=== PATIENT | female | born 1970 | race Caucasian/White ===

== ENCOUNTER 2019-09-02 18:28 | Emergency (ER) | payer BC ==
--- OUTSIDE RECORDS SUMMARY | 2019-09-02 18:30 | XMS REPORT | Continuity of Care Document ---
:1970 Author Organization [facility] t Address [address] [place] [address] [address]. Mer[address] [place] [address] Care Team Providers Name Role Phone Unavailable Unavailable Unavailable Problems This patient has no known problems. Allergies, Adverse Reactions, Alerts This patient has no known allergies or adverse reactions. Medications This patient has no known medications. Procedures This patient has no known procedures. Results This patient has no known results.
[2019-09-02] MEDS ORDERED: ONDANSETRON 4 MG/2 ML VIAL ONE ×2 (19:20→20:44)
[2019-09-02] MEDS ORDERED: FENTANYL CITR 100 MCG/2 ML ONE ×2 (19:20→21:54)
[2019-09-02 19:24] LABS: Absolute Lymphocytes (CBC) 1.4 K/uL (0.7-4.9); Basophils % 0.3 % (0-1.3); Hematocrit 40.2 % (36.0-45.0); Lymphocytes % 11.3 % (15.3-44.8); MPV 8.4 fL (7.6-11.3); RBC Red Blood Cell Count 4.33 M/uL (3.86-4.86)
[2019-09-02 19:41] LABS: Albumin 3.8 g/dL (3.4-5.0); Bilirubin Direct 0.1 mg/dL (0-0.2); Bilirubin Total 0.3 mg/dL (0.2-1.0); Protein, Total 7.4 g/dL (6.4-8.2)
--- NOTE | 2019-09-02 20:10 | RAD REPORT ---
EXAM DESCRIPTION: CTAbdomen Pelvis W Contrast - 09/02/2019 7:57 pm CLINICAL HISTORY: Abdominal pain. ABD PAIN COMPARISON: Abdomen Pelvis W Contrast dated 07/22/2016 TECHNIQUE: Biphasic CT imaging of the abdomen and pelvis was performed with 100 ml non-ionic IV cont rast. All CT scans are performed using dose optimization technique as appropriate and may include automated exposure control or mA/KV adjustment according to patient size. FINDINGS: The lung bases are clear.Cholecystectomy clips. The liver, spleen, pancreas, adrenal glands and left kidney are within normal limits. 9 mm stone (760 HU) is noted at the right UPJ resulting in moderate right hydronephrosis and perinephric fat strandi ng. No bowel obstruction, free air, free fluid or abscess. Appendectomy. No evidence of significant lym phadenopathy. No suspicious bony findings. IMPRESSION: 9 mm calculus is present at the right UVJ resulting in moderate hydronephrosis.
[2019-09-02] MEDS ORDERED: NS KCL 20MEQ 1,000 ML IV ONE (20:44)
[2019-09-02] MEDS ORDERED: KETOROLAC 30 MG/ML INJ ONE (20:45)
[2019-09-02] MEDS ORDERED: METOCLOPRAMIDE 10 MG/2mL INJ ONE (21:53)
[2019-09-02] MEDS ORDERED: DIPHENHYDRAMINE 50 MG/ML VIAL ONE (21:53)
--- NOTE | 2019-09-02 22:15 | EDPHYS ---
Physician Documentation [facility] Name: Miriam Gregorio Age: 49 yrs Sex: Female : 1970 Arrival Date: 09/02/2019 Time: 18:33 Bed 8 Private MD: ED Physician Vadim Rose HPI: 09/01 20:03 This 49 yrs old Female presents to ER via Ambulatory with complaints of jr8 Abdominal Pain, Nausea. 20:03 The patient presents with abdominal pain in the upper abdomen. Onset: The jr8 symptoms/episode began/occurred acutely, today. The symptoms do not radiate. Associated signs and symptoms: Pertinent positives: nausea and vomiting. The symptoms are described as stabbing. Modifying factors: The symptoms are alleviated by nothing, the symptoms are aggravated by nothing. Severity of pain: At its worst the pain was moderate in the emergency department the pain is unchanged. The patient has not experienced similar symptoms in the past. The patient has not recently seen a physician. 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 - Social history:: Smoking status: Patient denies any tobacco usage or history of. Patient/guardian denies using alcohol, street drugs, tobacco products. ROS: 20:03 Eyes: Negative for injury, pain, redness, and discharge, ENT: Negative for injury, jr8 pain, and discharge, Neck: Negative for injury, pain, and swelling, Respiratory: Negative for shortness of breath, cough, wheezing, and pleuritic chest pain, Back: Negative for injury and pain, MS/Extremity: Negative for injury and deformity, Skin: Negative for injury, rash, and discoloration, Neuro: Negative for headache, weakness, numbness, tingling, and seizure. 20:03 Cardiovascular: Negative for chest pain, palpitations, and edema. 20:03 Abdomen/GI: Positive for abdominal pain, nausea and vomiting, Negative for diarrhea, constipation, abdominal cramps, abdominal distension, anorexia, dysphagia, hematemesis, black/tarry stool, rectal pain, rectal bleeding, bowel incontinence, flatulence. Exam: 20:03 Eyes: Pupils equal round and reactive to light, extra-ocular motions intact. Lids and jr8 lashes normal. Conjunctiva and sclera are non-icteric and not injected. Cornea within normal limits. Periorbital areas with no swelling, redness, or edema. ENT: Nares patent. No nasal discharge, no septal abnormalities noted. Tympanic membranes are normal and external auditory canals are clear. Oropharynx with no redness, swelling, or masses, exudates, or evidence of obstruction, uvula midline. Mucous membranes moist. Neck: Trachea midline, no thyromegaly or masses palpated, and no cervical lymphadenopathy. Supple, full range of motion without nuchal rigidity, or vertebral point tenderness. No Meningismus. Cardiovascular: Regular rate and rhythm with a normal S1 and S2. No gallops, murmurs, or rubs. Normal PMI, no JVD. No pulse deficits. Respiratory: Lungs have equal breath sounds bilaterally, clear to auscultation and percussion. No rales, rhonchi or wheezes noted. No increased work of breathing, no retractions or nasal flaring. Back: No spinal tenderness. No costovertebral tenderness. Full range of motion. Skin: Warm, dry with normal turgor. Normal color with no rashes, no lesions, and no evidence of cellulitis. MS/ Extremity: Pulses equal, no cyanosis. Neurovascular intact. Full, normal range of motion. Neuro: Awake and alert, GCS 15, oriented to person, place, time, and situation. Cranial nerves II-XII grossly intact. Motor strength 5/5 in all extremities. Sensory grossly intact. Cerebellar exam normal. Normal gait. 20:03 Abdomen/GI: Inspection: abdomen appears normal, Bowel sounds: active, all quadrants, Palpation: soft, in all quadrants, moderate abdominal tenderness, in the epigastric area and mid upper abdomen , mass, is not appreciated, rebound tenderness, is not appreciated, voluntary guarding, is not appreciated, involuntary guarding, is not appreciated, no appreciated organomegaly, Indicators: McBurney's point is not tender, Rose's sign is negative, Rovsing's sign is negative, Liver: tenderness, is not appreciated. Vital Signs: 18:39 BP 129 / 100; Pulse 100; Resp 24; Temp 98.4; Pulse Ox 98% ; Pain 10/10; ll1 19:30 BP 133 / 81; Pulse 99; Resp 18; Pulse Ox 100% on R/A; wh 20:41 Weight 74.84 kg; Height 5 ft. 2 in. (157.48 cm); wh 21:00 BP 138 / 76; Pulse 109; Resp 18; Pulse Ox 100% on R/A; wh 22:00 BP 130 / 76; Pulse 107; Resp 18; Pulse Ox 100% on R/A; wh 20:41 Body Mass Index 30.18 (74.84 kg, 157.48 cm) MDM: 18:49 Patient medically screened. jr8 22:12 Data reviewed: vital signs, nurses notes, lab test result(s), radiologic studies, CT jr8 scan. Data interpreted: Pulse oximetry: on room air is 100 %. Interpretation: normal. Counseling: I had a detailed discussion with the patient and/or guardian regarding: the historical points, exam findings, and any diagnostic results supporting the discharge/admit diagnosis, lab results, radiology results, the need for outpatient follow up, a urologist, to return to the emergency department if symptoms worsen or persist or if there are any questions or concerns that arise at home. Response to treatment: the patient's symptoms have markedly improved after treatment. ED course: Patient feeling much better. Stable at this time. Able to tolerate fluids. Stone is at the UVJ. Explained to her that this still could cause problems if it does not pass in next day or two. To watch for fevers. If worse to come back for transfer if urology is not on. 09/01 18:49 Order name: Basic Metabolic Panel 8 09/01 18:49 Order name: CBC with Diff 8 09/01 18:49 Order name: Hepatic Function 8 09/01 18:49 Order name: Lipase; Complete Time: 20:05 [facility] 09/01 18:50 Order name: Basic Metabolic Panel; Complete Time: 20:05 [facility] 09/01 18:50 Order name: CBC with Automated Diff; Complete Time: 20:05 [facility] 09/01 18:50 Order name: Liver (Hepatic) Function; Complete Time: 20:05 [facility] 09/01 18:58 Order name: CT Abd/Pelvis - IV Contrast Only; Complete Time: 20:12 [facility] 09/01 18:49 Order name: IV Saline Lock; Complete Time: :09/01 18:49 Order name: Labs collected and sent; Complete Time: Administered Medications: 19:19 Drug: fentaNYL (PF) 75 mcg {Note: RASS 0.} Route: IVP; Site: right antecubital; 21:53 Follow up: Response: No adverse reaction; Pain is decreased; RASS: Alert and Calm (0) 19:21 Drug: Zofran (Ondansetron) 4 mg Route: IVP; Site: right antecubital; 21:53 Follow up: Response: No adverse reaction; Nausea is decreased 20:36 Drug: NS 0.9% with KCl 20 mEq/L 1000 ml Route: IV; Rate: 500 ml/hr; Site: right wh antecubital; 21:54 Follow up: Response: No adverse reaction; IV Status: Completed infusion wh 20:38 Drug: TORadol - Ketorolac 15 mg Route: IVP; Site: right antecubital; 21:54 Follow up: Response: No adverse reaction; Pain is decreased wh 20:40 Drug: Zofran (Ondansetron) 4 mg Route: IVP; Site: right antecubital; wh 21:54 Follow up: Response: No adverse reaction; Nausea is decreased wh 20:48 Drug: fentaNYL (PF) 50 mcg {Note: RASS 0.} Route: IVP; Site: right antecubital; 22:23 Follow up: Response: No adverse reaction; Pain is decreased; RASS: Alert and Calm (0) 20:50 Drug: Benadryl 25 mg Route: IVP; Site: right antecubital; 22:23 Follow up: Response: No adverse reaction 21:52 Drug: Reglan 10 mg Route: IVP; Site: right antecubital; 22:23 Follow up: Response: No adverse reaction; Nausea is decreased 22:14 Drug: Flomax 0.4 mg Route: PO; 22:23 Follow up: Response: No adverse reaction Disposition: 09/02 08:18 Co-signature as Attending Physician, Vadim Rose MD I agree with the assessment and kdr plan of care. Disposition: 09/02/19 22:14 Discharged to Home. Impression: Hydronephrosis with renal and ureteral calculous obstruction. - Condition is Stable. - Discharge Instructions: Kidney Stones, Hydronephrosis. - Prescriptions for tramadol 200 mg Oral tablet extended release 24 hr - take 1 tablet by ORAL route once daily; 12 tablet. Cipro 500 mg Oral Tablet - take 1 tablet by ORAL route every 12 hours for 10 days; 20 tablet. Flomax 0.4 mg Oral Capsule, Sust. Release 24 hr - take 1 capsule by ORAL route once daily 1/2 hour following the same meal each day; 30 capsule. Zofran 4 mg Oral Tablet - take 1 tablet by ORAL route every 12 hours As needed; 20 tablet. - Medication Reconciliation Form, Thank You Letter, Antibiotic Education, Prescription Opioid Use form. - Follow up: Quang Hernandes MD; When: 2 - 3 days; Reason: Recheck today's complaints, Continuance of care, Re-evaluation by your physician. - Problem is new. - Symptoms have improved. Signatures: Dispatcher [employer] EDMS Vadim Rose MD MD kdr Roszak, Josh, PA PA jr8 Princess Eagle, RN RN Bonnie Nicole Maxim, Tiana mw2 Jacquie Davidson RN RN ll1 Corrections: (The following items were deleted from the chart) 09/01 22:32 22:14 09/02/2019 22:14 Discharged to Home. Impression: Hydronephrosis with renal and mw2 ureteral calculous obstruction. Condition is Stable. Forms are Medication Reconciliation Form, Thank You Letter, Antibiotic Education, Prescription Opioid Use. Follow up: Quang Hernandes; When: 2 - 3 days; Reason: Recheck today's complaints, Continuance of care, Re-evaluation by your physician. Problem is new. Symptoms have improved. jr8
--- NOTE | 2019-09-02 22:15 | ER ---
Nurse's Notes [facility] Name: Miriam Gregorio Age: 49 yrs Sex: Female : 1970 Arrival Date: 09/02/2019 Time: 18:33 Bed 8 Private MD: Diagnosis: Hydronephrosis with renal and ureteral calculous obstruction Presentation: 09/01 18:39 Chief complaint: Patient states: Right sided abd pain with N/V for 10 am. Coronavirus ll1 screen: Patient denies a cough. Patient denies shortness of breath or difficulty breathing. Patient denies measured and/or subjective temperature greater than 100.4F prior to today's visit. Patient denies travel on a cruise ship or to a country the [facility] currently lists as an affected area. Patient denies contact with known and/or suspected case of COVID-19. Proceed with normal triage. Ebola Screen: Patient denies travel to an Ebola-affected area in the 21 days before illness onset. Initial Sepsis Screen: Does the patient meet any 2 criteria? HR > 90 bpm. No. Patient's initial sepsis screen is negative. Risk Assessment: Do you want to hurt yourself or someone else? Patient reports no desire to harm self or others. Onset of symptoms was September 02, 2019. 18:39 Method Of Arrival: Ambulatory ll1 18:39 Acuity: TU 3 ll1 19:30 Initial Sepsis Screen: Does the patient have a suspected source of infection? No. Patient's initial sepsis screen is negative. 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 - Social history:: Smoking status: Patient denies any tobacco usage or history of. Patient/guardian denies using alcohol, street drugs, tobacco products. Screenin:59 Abuse screen: Denies threats or abuse. Denies injuries from another. Nutritional jr10 screening: No deficits noted. Tuberculosis screening: No symptoms or risk factors identified. Fall Risk IV access (20 points). Assessment: 18:57 Pain: Complains of pain in epigastric area and umbilical area Pain does not radiate. jr10 Pain at worst was 10 out of 10 on a pain scale. Quality of pain is described as aching, gnawing, Pain began gradually, reports pain that started at 1000 this morning and has gradually gotten worse "I think I have pancreatitis" Is continuous, Aggravated by drinking, Noted to be grimacing, pt noted to be tearful at present Also complains of nausea. Neuro: No deficits noted. Cardiovascular: No deficits noted. Respiratory: No deficits noted. GI: Abdomen is non-distended, Bowel sounds present X 4 quads. Abdomen is tender to palpation in epigastric area and umbilical area Guarding noted. : No deficits noted. Musculoskeletal: No deficits noted. 18:57 General: Appears distressed, uncomfortable, Behavior is restless. jr10 19:29 General: Appears in no apparent distress. Behavior is calm, cooperative, appropriate wh for age. Pain: Complains of pain in epigastric area Pain does not radiate. Pain currently is 5 out of 10 on a pain scale. Neuro: Level of Consciousness is awake, alert, obeys commands, Oriented to person, place, time, situation, Appropriate for age. Cardiovascular: Heart tones S1 S2. Respiratory: Airway is patent Respiratory effort is even, unlabored, Respiratory pattern is regular, symmetrical, Breath sounds are clear bilaterally. GI: Abdomen is flat, non-distended, Bowel sounds present X 4 quads. Abd is soft Abdomen is tender to palpation in epigastric area. : No signs and/or symptoms were reported regarding the genitourinary system. EENT: No signs and/or symptoms were reported regarding the EENT system. Derm: Skin is intact, is healthy with good turgor, Skin is pink, warm \\T\\ dry. normal. Musculoskeletal: Circulation, motion, and sensation intact. 21:00 Reassessment: Patient appears in no apparent distress at this time. No changes from previously documented assessment. Patient and/or family updated on plan of care and expected duration. Pain level reassessed. Patient is alert, oriented x 3, equal unlabored respirations, skin warm/dry/pink. 22:15 Reassessment: Patient appears in no apparent distress at this time. No changes from previously documented assessment. Patient and/or family updated on plan of care and expected duration. Pain level reassessed. Patient is alert, oriented x 3, equal unlabored respirations, skin warm/dry/pink. Patient states feeling better. Patient states symptoms have improved. Vital Signs: 18:39 BP 129 / 100; Pulse 100; Resp 24; Temp 98.4; Pulse Ox 98% ; Pain 10/10; ll1 19:30 BP 133 / 81; Pulse 99; Resp 18; Pulse Ox 100% on R/A; wh 20:41 Weight 74.84 kg; Height 5 ft. 2 in. (157.48 cm); wh 21:00 BP 138 / 76; Pulse 109; Resp 18; Pulse Ox 100% on R/A; wh 22:00 BP 130 / 76; Pulse 107; Resp 18; Pulse Ox 100% on R/A; wh 20:41 Body Mass Index 30.18 (74.84 kg, 157.48 cm) ED Course: 18:33 Patient arrived in ED. mr 18:40 Triage completed. ll1 18:40 Arm band placed on Patient placed in an exam room, on a stretcher. ll1 18:46 Tana Fish is Primary Nurse. jr10 18:49 Hunter Samuel PA is PHCP. jr8 18:49 Vadim Rose MD is Attending Physician. jr8 19:00 Inserted saline lock: 20 gauge in right antecubital area, using aseptic technique. jr10 Blood collected. 19:01 Basic Metabolic Panel Sent. jr10 19:01 CBC with Diff Sent. jr10 19:02 Hepatic Function Sent. jr10 19:30 Patient has correct armband on for positive identification. Placed in gown. Bed in low wh position. Call light in reach. Side rails up X 1. Pulse ox on. NIBP on. 19:57 CT Abd/Pelvis - IV Contrast Only In Process Unspecified. EDMS 22:14 Quang Hernandes MD is Referral Physician. jr8 22:21 No provider procedures requiring assistance completed. IV discontinued, intact, wh bleeding controlled, No redness/swelling at site. Administered Medications: 19:19 Drug: fentaNYL (PF) 75 mcg {Note: RASS 0.} Route: IVP; Site: right antecubital; 21:53 Follow up: Response: No adverse reaction; Pain is decreased; RASS: Alert and Calm (0) 19:21 Drug: Zofran (Ondansetron) 4 mg Route: IVP; Site: right antecubital; 21:53 Follow up: Response: No adverse reaction; Nausea is decreased wh 20:36 Drug: NS 0.9% with KCl 20 mEq/L 1000 ml Route: IV; Rate: 500 ml/hr; Site: right wh antecubital; 21:54 Follow up: Response: No adverse reaction; IV Status: Completed infusion wh 20:38 Drug: TORadol - Ketorolac 15 mg Route: IVP; Site: right antecubital; 21:54 Follow up: Response: No adverse reaction; Pain is decreased wh 20:40 Drug: Zofran (Ondansetron) 4 mg Route: IVP; Site: right antecubital; 21:54 Follow up: Response: No adverse reaction; Nausea is decreased 20:48 Drug: fentaNYL (PF) 50 mcg {Note: RASS 0.} Route: IVP; Site: right antecubital; 22:23 Follow up: Response: No adverse reaction; Pain is decreased; RASS: Alert and Calm (0) wh 20:50 Drug: Benadryl 25 mg Route: IVP; Site: right antecubital; 22:23 Follow up: Response: No adverse reaction 21:52 Drug: Reglan 10 mg Route: IVP; Site: right antecubital; 22:23 Follow up: Response: No adverse reaction; Nausea is decreased 22:14 Drug: Flomax 0.4 mg Route: PO; 22:23 Follow up: Response: No adverse reaction Outcome: 22:14 Discharge ordered by MD. huynh 22:21 Discharged to home ambulatory. 22:21 Condition: stable 22:21 Discharge instructions given to patient, Instructed on discharge instructions, follow up and referral plans. no drinking with medication, no driving heavy equipment, medication usage, urine strainer, POC Demonstrated understanding of instructions, follow-up care, medications, POC Prescriptions given X 3. 22:32 Patient left the ED. mw2 Signatures: Dispatcher [employer] EDVT Payal Fish mr SamuelHunter PA PA jr8 Bonnie Duvall Tiana Pan mw2 Jacquie Davidson RN RN 1 Tana Fish jr10
[2019-09-02] MEDS ORDERED: TAMSULOSIN 0.4 MG SR CAP ONE (22:20)
[2019-09-02 22:44] VITALS: TEMP 98.4
[2019-09-02 22:46] VITALS: O2SAT 100
[2019-09-02 22:48] VITALS: BP 130/76
== END 2019-09-02 22:32 | disposition home or self-care (01) ==
LOC: ER 18:28
DX: N13.2 Hydronephrosis with renal and ureteral calculous obstruction (principal); Z88.5 Allergy status to narcotic agent; Z91.048 Other nonmedicinal substance allergy status
CPT/HCPCS: 96361; 85025; 80048; 36415; 80076; 83690; 74177; 96375; 96374; 99284; Q9967; J2765; J1200; J3010 ×2; J2405 ×2

== ENCOUNTER 2019-09-05 09:14 | Emergency (ER) | payer BC ==
[2019-09-05] MEDS ORDERED: ONDANSETRON 4 MG/2 ML VIAL ONE (10:05)
[2019-09-05] MEDS ORDERED: NA CHLORIDE 0.9% 500 ML ONE ×2 (10:05→12:25)
[2019-09-05] MEDS ORDERED: ACETAMINOPHEN 325 MG TABLET ONE (10:05)
--- NOTE | 2019-09-05 10:34 | RAD REPORT ---
EXAM DESCRIPTION: CT - Stone Protocol - 09/05/2019 9:55 am CLINICAL HISTORY: Abdominal pain. COMPARISON: September 02, 2019 TECHNIQUE: Computed axial tomography of the abdomen pelvis was obtained without oral or IV contrast. Lack of IV and oral contrast limits evaluation of solid organs, bowel, and vessels. Coronal reformat saúl images were obtained and reviewed. All CT scans are performed using dose optimization technique as appropriate and may include automated exposure control or mA/KV adjustment according to patient size. FINDINGS: Moderate right hydronephrosis. Contrast from the prior exam is present within the right re nal pelvis and right calyces. Heterogeneous density to the parenchyma of the right kidney. [address] right UPJ calculus unchanged in position since the prior exam. Right perirenal stranding Left renal calculus is not present. The liver, spleen, pancreas and adrenals appear grossly normal There is no evidence of diverticulitis. IMPRESSION: 8 millimeter right UPJ calculus results in moderate right hydronephrosis. Heterogeneous density of the right kidney may indicate a superimposed pyelonephritis
[2019-09-05] MEDS ORDERED: MEPERIDINE HCL 50 MG/ML ONE ×2 (10:37→14:21)
[2019-09-05 10:39] LABS: Absolute Lymphocytes (CBC) 0.6 K/uL (0.7-4.9); Basophils % 0.3 % (0-1.3); Hematocrit 35.5 % (36.0-45.0); MPV 9.4 fL (7.6-11.3)
--- NOTE | 2019-09-05 10:40 | RAD REPORT ---
EXAM DESCRIPTION: Alexsandra Single View09/05/2019 9:59 am CLINICAL HISTORY: Fever/abdominal pain COMPARISON: 2009 FINDINGS: The lungs appear clear of acute infiltrate. The heart is mildly enlarged IMPRESSION: No acute abnormalities displayed
[2019-09-05 10:53] LABS: Albumin 2.8 g/dL (3.4-5.0); Bilirubin Direct 0.2 mg/dL (0-0.2); Bilirubin Total 0.4 mg/dL (0.2-1.0)
[2019-09-05 10:58] LABS: Potassium 2.7 mmol/L (3.5-5.1)
[2019-09-05 12:07] LABS: Urine Bacteria <20 /HPF (<20); Urine Culture Reflex Order NOT NEEDED; Urine Urothelial Cells <5 /HPF (NONE SEEN)
[2019-09-05 12:09] LABS: Urine Blood 2+ (NEG); Urine Glucose NEGATIVE (NEG); Urine Protein 2+ (NEG); Urine pH 6.5 (5.0-7.0)
--- NOTE | 2019-09-05 12:12 | EDPHYS ---
Physician Documentation [facility] Name: Miriam Gregorio Age: 49 yrs Sex: Female : 1970 Arrival Date: 09/05/2019 Time: 09:18 Bed 5 Private MD: ED Physician Krunal Millan HPI: 09/04 10:50 This 49 yrs old Female presents to ER via Wheelchair with complaints of rn Fever, Diarrhea, Possible Kidney Stone. 10:50 The patient reports fever, that was measured at 103 degrees Fahrenheit. Onset: The rn symptoms/episode began/occurred today. Associated signs and symptoms: Pertinent positives: chills, nausea, vomiting. Severity of symptoms: At their worst the symptoms were moderate in the emergency department the symptoms are unchanged. The patient has experienced a previous episode. The patient has been recently seen at the [facility] Emergency Department. Reports just seen here a few days ago, feels like stone has not passes, now with fever/vomiting/diarrhea. . 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 - Social history:: Smoking status: Patient denies any tobacco usage or history of. - Family history:: not pertinent. - Hospitalizations: : No recent hospitalization is reported. ROS: 10:50 Constitutional: + fever and chills Eyes: Negative for injury, pain, redness, and rn perioperative, Cardiovascular: Negative for chest pain, palpitations, and edema, Respiratory: Negative for shortness of breath, cough, wheezing, and pleuritic chest pain, Abdomen/GI: + abd pain/nausea/vomiting MS/Extremity: Negative for injury and deformity, Skin: Negative for injury, rash, and discoloration, Neuro: Negative for headache, weakness, numbness, tingling, and seizure. Exam: 10:50 Constitutional: This is a well developed, well nourished patient who is awake, alert, rn appears uncomfortable Head/Face: Normocephalic, atraumatic. ENT: dry MM Cardiovascular: tachycardic, regular Respiratory: + tachypnea, no retractions Abdomen/GI: soft, + bilateral lower abd tenderness, no rebound Skin: Warm, dry MS/ Extremity: Pulses equal, no cyanosis. Neuro: Awake and alert, GCS 15 Vital Signs: 09:23 BP 106 / 56; Pulse 129; Resp 18; Temp 100.5(O); Pulse Ox 95% on R/A; Weight 74.84 kg; em Height 5 ft. 2 in. (157.48 cm); Pain 9/10; 10:34 BP 93 / 58; Pulse 105; Resp 28; Pulse Ox 89% ; sv 11:42 BP 92 / 58; Pulse 101; Resp 17; Temp 98.7; Pulse Ox 97% on 2 lpm NC; mh5 12:15 BP 104 / 67; Pulse 96; Resp 18; Pulse Ox 97% on 2 lpm NC; sv 13:00 BP 102 / 60; Pulse 96; Resp 19; Pulse Ox 96% on 2 lpm NC; sv 13:45 BP 110 / 59; Pulse 93; Resp 17; Pulse Ox 95% on 2 lpm NC; sv 09:23 Body Mass Index 30.18 (74.84 kg, 157.48 cm) em 10:34 Pt placed on O2 \T\ 2L per NC. O2 sat up to 96%. Informed Dr Millan. sv MDM: 09:29 Patient medically screened. rn 12:10 Differential diagnosis: viral Infection, bacterial infection, UTI. Data reviewed: vital rn signs, nurses notes, lab test result(s), radiologic studies, CT scan, and as a result, I will admit patient. Counseling: I had a detailed discussion with the patient and/or guardian regarding: the historical points, exam findings, and any diagnostic results supporting the discharge/admit diagnosis, lab results, radiology results, the need for further work-up and treatment in the hospital, the need to transfer to another facility, [facility] does not immediately have the required specialist. ED course: Pt with no change in proximal kidney stone, 8mm, + superimposed pyelonephritis, improved slightly, no urology here, will transfer, abx given, pt feels better, ambulatory to bathroom without assistance. . 09/04 09:36 Order name: Basic Metabolic Panel; Complete Time: 11:29 rn 09/04 09:36 Order name: CBC with Diff rn 09/04 09:36 Order name: Hepatic Function; Complete Time: 11:29 rn 09/04 09:36 Order name: Lipase; Complete Time: 11:29 rn 09/04 09:36 Order name: Urine Culture rn 09/04 09:36 Order name: Urine Microscopic Only; Complete Time: 12:09 rn 09/04 09:36 Order name: CT Stone Protocol; Complete Time: 10:41 rn 09/04 09:36 Order name: Blood Culture Adult (2) rn 09/04 09:36 Order name: XRAY Chest (1 view); Complete Time: 10:45 rn 09/04 11:43 Order name: Urine Dipstick--Ancillary (enter results); Complete Time: 12:09 bd 09/04 11:43 Order name: Urine --Ancillary (enter results); Complete Time: 12:09 bd 09/04 13:27 Order name: CBC Smear Scan EDMS 09/04 09:36 Order name: IV Saline Lock; Complete Time: 10:25 rn 09/04 09:36 Order name: Labs collected and sent; Complete Time: 10:25 rn 09/04 09:36 Order name: Urine Dipstick-Ancillary (obtain specimen); Complete Time: 11:41 rn Administered Medications: 10:24 Drug: NS 0.9% 500 ml Route: IV; Rate: bolus; Site: left antecubital; sv 10:45 Follow up: Response: No adverse reaction; IV Status: Completed infusion; IV Intake: sv 500ml 10:31 Drug: Zofran (Ondansetron) 4 mg Route: IVP; Site: left antecubital; sv 11:00 Follow up: Response: No adverse reaction; Nausea is decreased sv 10:33 Drug: Demerol 25 mg {Note: rass1.} Route: IVP; Site: left antecubital; sv 11:00 Follow up: Response: No adverse reaction; Pain is decreased; RASS: Alert and Calm (0) sv 12:33 Drug: Rocephin - (cefTRIAXone) 1 grams Route: IVPB; Infused Over: 30 mins; Site: left sv antecubital; 12:35 Follow up: Response: No adverse reaction; IV Status: Completed infusion; IV Intake: 10mlsv 12:33 Drug: NS 0.9% 500 ml Route: IV; Rate: bolus; Site: left antecubital; sv 13:00 Follow up: Response: No adverse reaction; IV Status: Completed infusion; IV Intake: sv 500ml 12:35 Drug: Tylenol 650 mg Route: PO; sv 13:00 Follow up: Response: No adverse reaction sv 14:19 Drug: Demerol 25 mg {Note: rass1.} Route: IVP; Site: left antecubital; sv 14:21 Follow up: Response: Medication administered at discharge. sv Disposition: 09/05/19 12:11 Transfer ordered to [facility]. Diagnosis are Hydronephrosis with renal and ureteral calculous obstruction, Pyelonephritis. - Reason for transfer: Higher level of care. - Accepting physician is . - Condition is Stable. - Problem is an ongoing problem. - Symptoms have improved. Signatures: Dispatcher [employer] Dawna Gaming RN RN Daniel Price RN RN Krunal Millan MD MD media intern: (The following items were deleted from the chart) 14:22 12:11 09/05/2019 12:11 Transfer ordered to [facility]. sv Diagnosis is Hydronephrosis with renal and ureteral calculous obstruction; Pyelonephritis. Reason for transfer: Higher level of care. Accepting physician is . Condition is Stable. Problem is an ongoing problem. Symptoms have improved. rn
--- NOTE | 2019-09-05 12:12 | ER ---
Nurse's Notes [facility] Name: Miriam Gregorio Age: 49 yrs Sex: Female : 1970 Arrival Date: 09/05/2019 Time: 09:18 Bed 5 Private MD: Diagnosis: Hydronephrosis with renal and ureteral calculous obstruction;Pyelonephritis Presentation: 09/04 09:23 Chief complaint: Patient states: was here on Thursday and diagnosed with kidney stone, em pain is about the same but now developed fever 103.5 this morning, also reports N/V/D. Coronavirus screen: Patient denies a cough. Patient denies shortness of breath or difficulty breathing. Patient denies measured and/or subjective temperature greater than 100.4F prior to today's visit. Patient denies travel on a cruise ship or to a country the [facility] currently lists as an affected area. Patient denies contact with known and/or suspected case of COVID-19. Ebola Screen: Patient negative for fever greater than or equal to 101.5 degrees Fahrenheit, and additional compatible Ebola Virus Disease symptoms Patient denies exposure to infectious person. Patient denies travel to an Ebola-affected area in the 21 days before illness onset. No symptoms or risks identified at this time. Initial Sepsis Screen: Does the patient meet any 2 criteria? HR > 90 bpm. Does the patient have a suspected source of infection? No. Patient's initial sepsis screen is negative. Risk Assessment: Do you want to hurt yourself or someone else? Patient reports no desire to harm self or others. Onset of symptoms was September 02, 2019. 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 - Social history:: Smoking status: Patient denies any tobacco usage or history of. - Family history:: not pertinent. - Hospitalizations: : No recent hospitalization is reported. Screenin:00 Abuse screen: Denies threats or abuse. Denies injuries from another. Nutritional sv screening: No deficits noted. Tuberculosis screening: No symptoms or risk factors identified. Fall Risk None identified. Assessment: 10:00 General: Appears in no apparent distress. uncomfortable, well groomed, well developed, sv Behavior is cooperative, appropriate for age, quiet. General: Reports fever for 1-2 days. Pain: Complains of pain in left low back Pain radiates to left lower quadrant Pain currently is 9 out of 10 on a pain scale. Quality of pain is described as shooting, Pain began 2-3 days ago. Is continuous, Noted to be quiet/stoic. Neuro: Level of Consciousness is awake, alert, obeys commands, Oriented to person, place, time, situation, Moves all extremities. Full function Speech is normal. Respiratory: Airway is patent Respiratory effort is even, unlabored, Respiratory pattern is regular, symmetrical. GI: Reports diarrhea, nausea. Derm: Skin is intact, Skin is normal. Musculoskeletal: Range of motion: intact in all extremities. 10:24 Reassessment: Patient appears in no apparent distress at this time. No changes from previously documented assessment. Patient and/or family updated on plan of care and expected duration. Pain level reassessed. Patient is alert, oriented x 3, equal unlabored respirations, skin warm/dry/pink. 12:33 Reassessment: Patient appears in no apparent distress at this time. Patient and/or sv family updated on plan of care and expected duration. Pain level reassessed. Patient is alert, oriented x 3, equal unlabored respirations, skin warm/dry/pink. 13:16 Reassessment: Attempted to call report to [facility], Director of unit to call sv their transfer center first before we proceed with transfer. 14:21 Reassessment: Patient appears in no apparent distress at this time. Patient and/or sv family updated on plan of care and expected duration. Pain level reassessed. Patient is alert, oriented x 3, equal unlabored respirations, skin warm/dry/pink. Report given to Ollie from EMS. Vital Signs: 09:23 BP 106 / 56; Pulse 129; Resp 18; Temp 100.5(O); Pulse Ox 95% on R/A; Weight 74.84 kg; em Height 5 ft. 2 in. (157.48 cm); Pain 9/10; 10:34 BP 93 / 58; Pulse 105; Resp 28; Pulse Ox 89% ; sv 11:42 BP 92 / 58; Pulse 101; Resp 17; Temp 98.7; Pulse Ox 97% on 2 lpm NC; mh5 12:15 BP 104 / 67; Pulse 96; Resp 18; Pulse Ox 97% on 2 lpm NC; sv 13:00 BP 102 / 60; Pulse 96; Resp 19; Pulse Ox 96% on 2 lpm NC; sv 13:45 BP 110 / 59; Pulse 93; Resp 17; Pulse Ox 95% on 2 lpm NC; sv 09:23 Body Mass Index 30.18 (74.84 kg, 157.48 cm) em 10:34 Pt placed on O2 \T\ 2L per NC. O2 sat up to 96%. Informed Dr Millan. sv ED Course: 09:18 Patient arrived in ED. bp1 09:26 Triage completed. em 09:27 Arm band placed on. em 09:29 Krunal Millan MD is Attending Physician. rn 09:51 Dawna Benz RN is Primary Nurse. sv 09:55 CT Stone Protocol In Process Unspecified. EDMS 09:59 XRAY Chest (1 view) In Process Unspecified. EDMS 10:00 Patient has correct armband on for positive identification. Placed in gown. Bed in low sv position. Call light in reach. Pulse ox on. NIBP on. Door closed. Head of bed elevated. 10:05 First set of blood cultures drawn by me. sv 10:15 Second set of blood cultures drawn by me. Inserted saline lock: 20 gauge in left sv antecubital area, using aseptic technique. Blood collected. Flushed left antecubital with 5 ml normal saline. 10:52 Notified ED physician of a critical lab result(s). platelets-101. sv 11:41 Urine Culture Sent. mh5 11:41 Urine Microscopic Only Sent. mh5 11:42 Urine collected: clean catch specimen, clear. mh5 12:42 transfer approval from receiving facility. sv 14:21 No provider procedures requiring assistance completed. Patient transferred, IV remains sv in place. intact. Administered Medications: 10:24 Drug: NS 0.9% 500 ml Route: IV; Rate: bolus; Site: left antecubital; sv 10:45 Follow up: Response: No adverse reaction; IV Status: Completed infusion; IV Intake: sv 500ml 10:31 Drug: Zofran (Ondansetron) 4 mg Route: IVP; Site: left antecubital; sv 11:00 Follow up: Response: No adverse reaction; Nausea is decreased sv 10:33 Drug: Demerol 25 mg {Note: rass1.} Route: IVP; Site: left antecubital; sv 11:00 Follow up: Response: No adverse reaction; Pain is decreased; RASS: Alert and Calm (0) sv 12:33 Drug: Rocephin - (cefTRIAXone) 1 grams Route: IVPB; Infused Over: 30 mins; Site: left sv antecubital; 12:35 Follow up: Response: No adverse reaction; IV Status: Completed infusion; IV Intake: 10mlsv 12:33 Drug: NS 0.9% 500 ml Route: IV; Rate: bolus; Site: left antecubital; sv 13:00 Follow up: Response: No adverse reaction; IV Status: Completed infusion; IV Intake: sv 500ml 12:35 Drug: Tylenol 650 mg Route: PO; sv 13:00 Follow up: Response: No adverse reaction sv 14:19 Drug: Demerol 25 mg {Note: rass1.} Route: IVP; Site: left antecubital; sv 14:21 Follow up: Response: Medication administered at discharge. sv Intake: 10:45 IV: 500ml; Total: 500ml. sv 12:35 IV: 10ml; Total: 510ml. sv 13:00 IV: 500ml; Total: 1010ml. sv Outcome: 12:11 ER care complete, transfer ordered by . rn 14:05 Transferred by ground EMS to [facility], Transfer form completed. sv X-rays sent w/ patient. Note: Report called to Dawna LOW 14:05 Condition: stable 14:05 Instructed on the need for transfer. 14:22 Patient left the ED. sv Signatures: Dispatcher [employer] Dawna Gaming RN RN sv Munoz, Edgar, RN RN em Nieto, Roman, MD MD rn Martinez, Maria [facility] Corrections: (The following items were deleted from the chart) 10:38 10:34 BP 93 / 58; Pulse 105bpm; Resp 26bpm; Pulse Ox 90% RA; sv sv 10:39 10:34 BP 93 / 58; Pulse 105bpm; Resp 26bpm; Pulse Ox 89%; Pt placed on O2 \T\ 2L per NC. sv O2 sat up to 96%. Informed Dr Millan.; sv
[2019-09-05] MEDS ORDERED: NA CHLORIDE 0.9% 0 ML ONE (12:23)
[2019-09-05] MEDS ORDERED: CEFTRIAXONE/SWI 1gm 1 GM/10 ML SYR ONE (12:24)
--- OUTSIDE RECORDS SUMMARY | 2019-09-05 12:31 | XMS REPORT | Continuity of Care Document ---
:1970 Author Organization [facility] t Address [address] [place] [address] Care Team Providers Name Role Phone Magda PENNINGTON, Ganga Primary Care Physician Unavailable Payers Payer Name Policy Type Policy Number Effective Date Expiration Date S ource BLUE CROSS/BLUE xxxxxxxxxxxx [facility] Medical OPTIONSxxxxxxxxx [place] [id number] [id number], [place] [address] Problems This patient has no known problems. Allergies, Adverse Reactions, Alerts Allergy Allergy Status Severity Reaction(s) Onset Inactive Treating Comm ents Source Name Type Date Date Clinician Adhesive Drug Active Itching, Takes [facility] Allergy Other (See 05-18 skin off [place] - Comments) 00:00: Medical [facility] Center Codeine Drug Active Other (See "feel [facility] Allergy Comments) 05-18 jumpy and [place] - 00:00: skin Medical 00 crawling" Center Social History Social Habit Start Date Stop Date Quantity Comments Source Sex Assigned At [facility] Alcohol Comment 2013-05-18 2013-05-18 social [facility] - 00:00:00 00:00:00 Medical Center Smoking Status Start Date Stop Date Source Current every day smoker 2013-05-19 00:00:00 [facility] Medications Ordered Filled Start Stop Current Ordering Indication Dosage Frequency Signature Comments Components Source Medication Medication Date Date Medication? Clinician (SIG) Name Name pramipexole Yes .5mg [id number] Take 0.[address] [facility] (MIRAPEX) 05-18 [id number] mg by [place] - 0.5 MG 11:52: 3D mouth 3 Medical tablet 41 (three) Center times daily. topiramate Yes 50mg Q.5D Take [address] (TOPAMAX) 4-02 by mouth 2 [facility] - 50 MG 11:52: (two) Medical tablet 41 times Center daily. diphenhydra Yes 1{tbl} QD Take [address] mine-acetam 4-02 tablet by [place] - inophen 11:52: mouth Medical (TYLENOL 41 daily. Center PM) 25-500 mg Tab Procedures This patient has no known procedures. Results This patient has no known results.
[2019-09-05 13:27] LABS: Blood Morphology Comment NOT SEEN (NOT SEEN); Platelet Estimate DECR; Urine White Blood Cell Casts OK
[2019-09-05 22:32] VITALS: TEMP 98.7
[2019-09-05 22:40] VITALS: BP 110/59; O2SAT 95
== END 2019-09-05 14:22 | disposition short-term general hospital (02) ==
LOC: ER 09:14
DX: N12 Tubulo-interstitial nephritis, not specified as acute or chronic (principal); N13.2 Hydronephrosis with renal and ureteral calculous obstruction; Z88.5 Allergy status to narcotic agent; Z91.048 Other nonmedicinal substance allergy status
CPT/HCPCS: 96361; 87040 ×2; 87088; 85025; 87086; 80048; 36415; 81025; 80076; 83690; 76377; 74176; 71045; 96375; 96374; 99285; J2175 ×2; J0696; J7040 ×2; J2405; 81003; 81015; 87205; J7030

== ENCOUNTER 2020-12-12 10:23 | Observation (INO) | payer BC ==
[2020-12-12 11:37] LABS: Absolute Lymphocytes (CBC) 1.1 K/uL (0.7-4.9); Basophils % 0.5 % (0-1.3)
[2020-12-12 11:44] LABS: Hematocrit 41.8 % (36.0-45.0); Lymphocytes % 29.1 % (15.3-44.8); MPV 8.3 fL (7.6-11.3); RBC Red Blood Cell Count 4.71 M/uL (3.86-4.86)
[2020-12-12] MEDS ORDERED: ONDANSETRON 4 MG/2 ML VIAL ONE (11:47)
[2020-12-12] MEDS ORDERED: NA CHLORIDE 0.9% 1,000 ML ONE (11:47)
[2020-12-12 11:55] LABS: Bilirubin Direct 0.3 mg/dL (0-0.2); Bilirubin Total 0.4 mg/dL (0.2-1.0); Potassium 3.2 mmol/L (3.5-5.1); Protein, Total 7.3 g/dL (6.4-8.2)
[2020-12-12 12:32] LABS: Blood Morphology Comment NOT SEEN (NOT SEEN); Platelet Estimate ADEQ
--- NOTE | 2020-12-12 12:41 | RAD REPORT ---
EXAM DESCRIPTION: CTAbdomen Pelvis W Contrast - 12/12/2020 12:31 pm CLINICAL HISTORY: diarrhea, n/v, abd pain COMPARISON: Abdomen Pelvis W Contrast dated 09/02/2019; Abdomen Pelvis W Contrast dated 07/22/2016 TECHNIQUE: CT of the abdomen and pelvis was performed. All CT scans are performed using dose optimization technique as appropriate and may include automated exposure control or mA/KV adjustment according to patient size. FINDINGS: Lower chest: Basilar airspace disease. Liver: No acute abnormality or suspicious lesions. Biliary: No biliary ductal dilatation. Cholecystectomy . Stomach: No significant focal abnormality. Duodenum: No significant focal abnormality. Pancreas: No significant abnormality. Spleen: No significant abnormality. Adrenal: No suspicious lesions. Kidney/ureter: No hydronephrosis. No renal calculi. Retroperitoneum: No retroperitoneal adenopathy. Vascular: No aneurysm. Bowel: No significant focal abnormality. Peritoneum: No ascites or free air. Bladder: Grossly unremarkable. Reproductive: No adnexal masses. Bones: No acute fracture. Other: n/a IMPRESSION: No acute intra-abdominal or pelvic finding. Basilar airspace disease which may reflect m ultifocal pneumonia, possibly Covid-19.
--- NOTE | 2020-12-12 15:36 | RAD REPORT ---
EXAM DESCRIPTION: RAD - Chest Single View - 12/12/2020 3:25 pm CLINICAL HISTORY: cp, cough Chest pain. COMPARISON: Chest Single View dated 09/05/2019; CHEST SINGLE VIEW dated 06/11/2009 FINDINGS: Portable technique limits examination quality. Poorly defined opacities are present in both lung bases, greater on the left as well as in the right upper lobe laterally. This likely represents a pulmonary infection/ pneumonia. COVID-19 is a possibil ity. The heart is normal in size.
--- NOTE | 2020-12-12 16:36 | ER ---
Nurse's Notes [facility] Name: Miriam Gregorio Age: 50 yrs Sex: Female : 1970 Arrival Date: 12/12/2020 Time: 10:26 Bed 20 Private MD: Diagnosis: Pneumonia due to SARS-associated coronavirus;Hypoxemia;Dehydration Presentation: 12/12 10:28 Chief complaint: Patient states: i have been having diarrhea and vomiting since last tw2 Thursday and havent gotten any better. i have been to [place] [facility] urgent care. they did a CT scan and blood work in [place]. Chief complaint: Patient states: i cant keep anything down. im just weak. have no energy. it all started with a sore throat and fever last Thursday. Coronavirus screen: diarrhea, nausea, vomiting. Client presents with at least one sign or symptom that may indicate coronavirus-19. Standard/surgical mask placed on the client. Provider contacted for isolation considerations. Ebola Screen: Patient denies travel to an Ebola-affected area in the 21 days before illness onset. Initial Sepsis Screen: Does the patient meet any 2 criteria? HR > 90 bpm. No. Patient's initial sepsis screen is negative. Does the patient have a suspected source of infection? No. Patient's initial sepsis screen is negative. Risk Assessment: Do you want to hurt yourself or someone else? Patient reports no desire to harm self or others. Onset of symptoms was December 12, 2020. 10:28 Method Of Arrival: Ambulatory tw2 10:28 Acuity: TU 3 tw2 Triage Assessment: 10:33 General: Appears in no apparent distress. uncomfortable, Behavior is calm, cooperative, tw2 appropriate for age. Pain: Complains of pain in abdomen. GI: Reports diarrhea, intolerance of fluids, intolerance of food, nausea, vomiting. Historical: - Allergies: 10:31 Adhesives; tw2 10:31 Codeine; tw2 - Home Meds: 10:31 estradiol 1 mg Oral tab 1 tab once daily [Active]; tw2 - PMHx: 10:31 Migraines; tw2 - PSHx: 10:31 Cholecystectomy; Appendectomy; partial hysterectomy; Kidney surgery; tw2 - Immunization history:: Adult Immunizations not immunized, Client reports having NOT received the Covid vaccine. - Social history:: Smoking status: Patient denies any tobacco usage or history of. - Family history:: not pertinent. - Hospitalizations: : No recent hospitalization is reported. Screenin:49 Abuse screen: Denies threats or abuse. Nutritional screening: No deficits noted. tw2 Tuberculosis screening: No symptoms or risk factors identified. Fall Risk None identified. Assessment: 11:19 GI: Abdomen is round non-distended, Bowel sounds present X 4 quads. Reports diarrhea, sl2 nausea, vomiting, Patient currently denies rectal bleeding. 11:19 General: Appears distressed, uncomfortable, well developed, Behavior is calm, sl2 cooperative. Pain: Denies pain. Neuro: No deficits noted. Cardiovascular: No deficits noted. Respiratory: No deficits noted. Airway is patent Trachea midline Respiratory effort is even, unlabored, Respiratory pattern is regular, Breath sounds are clear bilaterally. : No deficits noted. EENT: No deficits noted. Derm: No deficits noted. Musculoskeletal: No deficits noted. 11:43 Reassessment: Patient lying quietly in bed, shows no signs of acute distress or sl2 discomfort, verbalized decreased nausea, vital signs stable, will continue to re-assess and monitor. Awaiting completion of diagnostic studies and results. Vital Signs: 10:28 BP 108 / 70; Pulse 104; Resp 17; Temp 97.2(TE); Pulse Ox 95% on R/A; Weight 76.66 kg tw2 (R); Height 5 ft. 2 in. (157.48 cm); Pain 6/10; 11:30 BP 103 / 65; Pulse 74; Resp 16; Temp 98.4(O); Pulse Ox 100% on R/A; sl2 12:30 BP 120 / 65; Pulse 89; Resp 20; Temp 98.6(O); Pulse Ox 99% on R/A; sl2 13:30 BP 111 / 67; Pulse 79; Resp 18; Pulse Ox 99% on R/A; sl2 13:45 BP 127 / 75; Pulse 78; Resp 18; Temp 98.2(O); Pulse Ox 100% on R/A; sl2 16:22 BP 130 / 62; Pulse 127; Resp 38; Temp 101.9(O); Pulse Ox 91% on R/A; 5 16:30 BP 123 / 73; Pulse 95; Resp 18; Temp 101.9; Pulse Ox 98% on R/A; sl2 19:18 BP 100 / 65; Pulse 80; Resp 18; Temp 100.1(O); Pulse Ox 96% on R/A; kc4 10:28 Body Mass Index 30.91 (76.66 kg, 157.48 cm) tw2 ED Course: 10:26 Patient arrived in ED. ds1 10:31 Triage completed. tw2 10:31 Arm band placed on. tw2 10:33 Bed in low position. Call light in reach. tw2 10:37 Krunal Millan MD is Attending Physician. rn 11:18 Coco Pro, MARANDA is Primary Nurse. sl2 11:18 Coco Pro RN is Primary Nurse. sl2 11:19 Inserted saline lock: 20 gauge in left antecubital area, using aseptic technique. sl2 16:24 Pulse ox on. NIBP on. mh5 16:35 Eugene Millan MD is Hospitalizing Provider. rn 16:41 No provider procedures requiring assistance completed. sl2 19:18 Dalia Castellon is Primary Nurse. kc4 19:43 Basic Metabolic Panel Sent. kc4 19:43 CBC with Diff Sent. kc4 19:43 Hepatic Function Sent. kc4 19:43 Lipase Sent. kc4 19:43 SARS-COV-2 RT PCR (Document "Date of Onset" if Symptomatic) Sent. kc4 19:52 Patient admitted, IV remains in place. kc4 Administered Medications: 11:19 Drug: NS 0.9% 1000 ml Route: IV; Rate: 1000 ml; Site: right antecubital; 2 11:43 Follow up: Response: No adverse reaction sl2 12:30 Follow up: IV Status: Completed infusion; IV Intake: 1000ml sl2 11:19 Drug: Zofran (Ondansetron) 4 mg Route: IVP; Site: right antecubital; 2 11:42 Follow up: Response: No adverse reaction; Nausea is decreased sl2 16:38 Drug: Tylenol 1000 mg Route: PO; sl2 16:49 Follow up: Response: No adverse reaction 2 19:43 Follow up: Response: No adverse reaction; Temperature is decreased kc4 Intake: 12:30 IV: 1000ml; Total: 1000ml. 2 Outcome: 16:35 Decision to Hospitalize by Provider. rn 19:52 Admitted to Tele accompanied by tech, via stretcher, room 407, with chart. kc4 19:52 Condition: stable 19:52 Instructed on the need for admit. 20:17 Patient left the ED. em Signatures: Daniel Price, RN RN Keyana Jackson ds1 Krunal Millan MD MD rn Wise, Tara, RN RN tw2 Martinez, Maria [facility] Dalia Castellon kc4 Coco Pro RN RN 2
--- NOTE | 2020-12-12 16:36 | EDPHYS ---
Physician Documentation [facility] Name: Miriam Gregorio Age: 50 yrs Sex: Female : 1970 Arrival Date: 12/12/2020 Time: 10: Bed 20 Private MD: GRAHAM Physician Krunal Millan HPI: 12/12 11:56 This 50 yrs old Female presents to ER via Ambulatory with complaints of rn Nausea/Vomiting/Diarrhea. 11:56 The patient presents to the emergency department with nausea, vomiting, diarrhea, rn abdominal pain. Onset: The symptoms/episode began/occurred 1.5 week(s) ago. Possible causes: unknown. The symptoms are aggravated by nothing. The symptoms are alleviated by nothing. Associated signs and symptoms: Pertinent positives: abdominal pain, diarrhea, fever, nausea, vomiting, Pertinent negatives: GI bleeding. Severity of symptoms: At their worst the symptoms were moderate in the emergency department the symptoms are unchanged. The patient has not experienced similar symptoms in the past. The patient has been recently seen by a physician:. Patient reports 1.5 weeks of nausea/vomiting/diarrhea/abdominal cramping. Denies any blood in stool. States seen at urgent care with negative Covid test as well as [facility] with negative CAT scan of the back and prescribed antibiotics. Does not feel like is getting better. Feels dehydrated and generalized weakness.. Historical: - Allergies: 10:31 Adhesives; tw2 10:31 Codeine; tw2 - Home Meds: 10:31 estradiol 1 mg Oral tab 1 tab once daily [Active]; tw2 - PMHx: 10:31 Migraines; tw2 - PSHx: 10:31 Cholecystectomy; Appendectomy; partial hysterectomy; Kidney surgery; tw2 - Immunization history:: Adult Immunizations not immunized, Client reports having NOT received the Covid vaccine. - Social history:: Smoking status: Patient denies any tobacco usage or history of. - Family history:: not pertinent. - Hospitalizations: : No recent hospitalization is reported. ROS: 11:56 Constitutional: Positive for subjective fever Eyes: Negative for injury, pain, redness, rn and discharge, Neck: Negative for injury, pain, and swelling, Cardiovascular: Negative for chest pain, palpitations, and edema, Respiratory: Negative for shortness of breath, cough, wheezing, and pleuritic chest pain, Abdomen/GI: Positive for abdominal pain/nausea/vomiting/diarrhea Back: Negative for injury and pain, : Negative for injury, bleeding, discharge, and swelling, MS/Extremity: Negative for injury and deformity, Skin: Negative for injury, rash, and discoloration, Neuro: Negative for headache, numbness, tingling, and seizure. 11:56 All other systems are negative. Exam: 11:56 Constitutional: This is a well developed, well nourished patient who is awake, alert, rn and in no acute distress. Head/Face: Normocephalic, atraumatic. Eyes: Periorbital areas with no swelling, redness, or edema. ENT: Dry mucous membranes Cardiovascular: Regular rate and rhythm. No pulse deficits. Respiratory: No increased work of breathing, no retractions or nasal flaring. Abdomen/GI: Soft, mild tenderness in all 4 quadrants, no peritoneal signs, no masses Skin: Warm, dry MS/ Extremity: Pulses equal, no cyanosis. Neuro: Awake and alert, GCS 15 Vital Signs: 10:28 BP 108 / 70; Pulse 104; Resp 17; Temp 97.2(TE); Pulse Ox 95% on R/A; Weight 76.66 kg tw2 (R); Height 5 ft. 2 in. (157.48 cm); Pain 6/10; 11:30 BP 103 / 65; Pulse 74; Resp 16; Temp 98.4(O); Pulse Ox 100% on R/A; sl2 12:30 BP 120 / 65; Pulse 89; Resp 20; Temp 98.6(O); Pulse Ox 99% on R/A; sl2 13:30 BP 111 / 67; Pulse 79; Resp 18; Pulse Ox 99% on R/A; sl2 13:45 BP 127 / 75; Pulse 78; Resp 18; Temp 98.2(O); Pulse Ox 100% on R/A; sl2 16:22 BP 130 / 62; Pulse 127; Resp 38; Temp 101.9(O); Pulse Ox 91% on R/A; 5 16:30 BP 123 / 73; Pulse 95; Resp 18; Temp 101.9; Pulse Ox 98% on R/A; sl2 19:18 BP 100 / 65; Pulse 80; Resp 18; Temp 100.1(O); Pulse Ox 96% on R/A; kc4 10:28 Body Mass Index 30.91 (76.66 kg, 157.48 cm) tw2 MDM: 10:37 Patient medically screened. rn 13:07 ED course: Patient with no acute findings and CT abdomen and pelvis. Caught the lower rn lungs that shows evidence of possible Covid infection. Covid test added and chest x-ray added. States Covid test was negative after 2 days of symptoms.. 16:33 Differential diagnosis: gastritis, pancreatitis, diverticulitis, viral gastroenteritis, rn gastroenteritis, Covid, viral syndrome, dehydration. Data reviewed: vital signs, nurses notes, lab test result(s), radiologic studies, CT scan, plain films, and as a result, I will admit patient. 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 Interpretation: hypoxia. Plan: O2 by NC applied. Test interpretation: by ED physician or midlevel provider: plain radiologic studies, Chest x-ray consistent with Covid pneumonia with bilateral pulmonary infiltrates.. Counseling: I had a detailed discussion with the patient and/or guardian regarding: the historical points, exam findings, and any diagnostic results supporting the discharge/admit diagnosis, lab results, radiology results, the need for further work-up and treatment in the hospital. 16:33 Response to treatment: the patient's symptoms have mildly improved after treatment, and rn as a result, I will admit patient. Admission orders: after a detailed discussion of the patient's condition and case, the admit orders are written by me. ED course: Patient extremely tachypneic and hypoxic just walking to the bathroom. Still febrile. Will admit to hospitalist service for IV hydration and further care for Covid pneumonia. 12/12 10:46 Order name: Basic Metabolic Panel rn 12/12 10:46 Order name: CBC with Diff rn 12/12 10:46 Order name: Hepatic Function rn 12/12 10:46 Order name: Lipase rn 12/12 11:46 Order name: CBC with Automated Diff; Complete Time: 12:49 EDMS 12/12 11:56 Order name: Basic Metabolic Panel; Complete Time: 12:49 EDMS 12/12 10:46 Order name: CT Abd/Pelvis - IV Contrast Only rn 12/12 11:56 Order name: Liver (Hepatic) Function; Complete Time: 12:49 EDMS 12/12 11:56 Order name: Lipase; Complete Time: 12:49 EDMS 12/12 12:33 Order name: Manual Differential; Complete Time: 12:49 EDMS 12/12 12:41 Order name: CT; Complete Time: 12:49 EDMS 12/12 12:48 Order name: SARS-COV-2 RT PCR (Document "Date of Onset" if Symptomatic) rn 12/12 12:48 Order name: XRAY Chest (1 view) rn 12/12 15:58 Order name: SARS-COV-2 RT PCR; Complete Time: 16:04 EDMS 12/12 10:46 Order name: IV Saline Lock; Complete Time: 11:19 rn 12/12 10:46 Order name: Labs collected and sent; Complete Time: 11:19 rn 12/12 15:37 Order name: RAD; Complete Time: 15:50 EDMS Administered Medications: 11:19 Drug: NS 0.9% 1000 ml Route: IV; Rate: 1000 ml; Site: right antecubital; sl2 11:43 Follow up: Response: No adverse reaction sl2 12:30 Follow up: IV Status: Completed infusion; IV Intake: 1000ml sl2 11:19 Drug: Zofran (Ondansetron) 4 mg Route: IVP; Site: right antecubital; sl2 11:42 Follow up: Response: No adverse reaction; Nausea is decreased sl2 16:38 Drug: Tylenol 1000 mg Route: PO; sl2 16:49 Follow up: Response: No adverse reaction sl2 19:43 Follow up: Response: No adverse reaction; Temperature is decreased kc4 Disposition Summary: 12/12/20 16:35 Hospitalization Ordered Hospitalization Status: Observation rn Provider: Eugene Millan rn Location: Telemetry/MedSurg (observation) rn Condition: Stable rn Problem: an ongoing problem rn Symptoms: have improved rn Bed/Room Type: Standard rn Room Assignment: 407(12/12/20 19:21) eb1 Diagnosis - Pneumonia due to SARS-associated coronavirus rn - Hypoxemia rn - Dehydration rn Forms: - Medication Reconciliation Form rn - SBAR form rn Signatures: Dispatcher [employer] EDMS Krunal Millan MD MD rn Wise, Tara, RN RN tw2 Audrey Dean, RN RN eb1 Coco Pro, RN RN 2 Dalia Castellon [facility] Corrections: (The following items were deleted from the chart) 34 16:33 Data interpreted: centrex radio 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 Interpretation: hypoxia. Plan: O2 by NC applied. rn 1634 16:33 Test interpretation: by ED physician or midlevel provider: ECG, plain radiologic rn studies, Chest x-ray consistent with Covid pneumonia with bilateral pulmonary infiltrates., rn 19:21 16:35 rn eb1
[2020-12-12] MEDS ORDERED: ACETAMINOPHEN 500 MG TAB ONE (17:06)
--- NOTE | 2020-12-12 17:32 | P.HP ---
Certification for Inpatient Patient admitted to: Observation With expected LOS: <2 Midnights Practitioner: I am a practitioner with admitting privileges, knowledge of patient current condition, hospital course, and medical plan of care. Services: Services provided to patient in accordance with Admission requirements found in Title 42 Section 412.3 of the Code of Federal Regulations Patient History Date of Service: 12/12/20 Reason for admission: COVID-19 pneumonia, unable to tolerate p.o. History of Present Illness: 50-year-old female, PMH: Migraines, currently going through menopause. Presents to the ED after 1-1/2 weeks of ongoing nausea, vomiting, diarrhea, general malaise, and cough. Patient went to the [facility], and her symptoms began 2-3 days later. Initial Covid testing was negative. She was seen at a urgent care and [facility] with negative imaging and "normal blood work". She was discharged home with ciprofloxacin and Flagyl 2-3 days ago to cover for p ossible enteritis/abdominal infection. She reports no change in her symptoms. She has been unable to keep any water or food down in the last few days. She continues with watery/loose diarrhea. She states her urine has been dark and she feels very dehydrated. In the ED, work-up notable for positive Covid test, negative CT abdomen/pelvis, however lower lung gillis on CT and on chest x-ray consistent with Covid pneumonia. Oxygen saturation 90-92% on room air, however when ambulating to the bathroom her heart rate significantly increased to the 130s, with tachypnea up to 40s. Tmax in ED: 101.9. She reports not receiving COVID vaccine. Allergies codeine Allergy (Unverified 07/22/16 13:35) Unknown Adhesives Allergy (Uncoded 07/22/16 13:35) Unknown - Past Medical/Surgical History -: Migraines -: Menopause Past Surgical History: Patient denies surgical history - Family History Family History: Reviewed- Non-Contributory - Social History Smoking Status: Former smoker (4y ago) Place of Residence: Home Review of Systems 10-point ROS is otherwise unremarkable Physical Examination - Physical Exam General: Alert, Mild distress HEENT: Sclerae nonicteric Respiratory: Diminished, Other (dry cough) Cardiovascular: No edema, Regular rate/rhythm (intermittent sinus tachycardia) Gastrointestinal: Soft and benign, Non-distended, No tenderness Musculoskeletal: No erythema, No tenderness Integumentary: No rashes, No significant lesion Neurological: Normal speech, Normal strength at 5/5 x4 extr, Normal affect - Studies Laboratory Data (last 24 hrs) 12/12/20 11:10: Sodium 141, Potassium 3.2 L, BUN 9, Creatinine 1.06, Glucose 96, Total Bilirubin 0.4, AST 67 H, ALT 61, Alkaline Phosphatase 150 H, Lipase 98 12/12/20 11:10: WBC 4.00 L, Hgb 13.9, Hct 41.8, Plt Count 124 L 12/12/20 10:46: WBC Cancelled, Hgb Cancelled, Hct Cancelled, Plt Count Cancelled 12/12/20 10:46: Sodium Cancelled, Potassium Cancelled, BUN Cancelled, Creatinine Cancelled, Glucose Cancelled, Total Bilirubin Cancelled, AST Cancelled, ALT Cancelled, Alkaline Phosphatase Cancelled, Lipase Cancelled Assessment and Plan - Advance Directives Does patient have a Living Will: No Does patient have a Durable POA for Healthcare: No Physician Review Additional Text: Problem list COVID-19 pneumonia Nausea/vomiting/diarrhea Inability to tolerate p.o. Migraine Menopause SIRS 3/4, tachycardia, tachypnea, fever, no leukocytosis. Patient overall looks ill, not septic All secondary to her COVID-19 pneumonia/infection Treat with steroids, vitamin supplementation, oxygen as needed Pulmonology consult Lovenox for DVT prophylaxis will give 1 L IV fluid overnight, patient appears dry. Urine is dark. 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 Code: full Dispo: anticipate dc home in ~2 days Time Spent Managing Pts Care (In Minutes): 60
[2020-12-12 20:40] VITALS: BMI 29.7
[2020-12-12] MEDS ORDERED: ACETAMINOPHEN 500 MG TAB PO PRN (20:43)
[2020-12-12] MEDS ORDERED: NA CHLORIDE 0.9% 1,000 ML IV SCH (20:43)
[2020-12-12] MEDS ORDERED: ONDANSETRON 4 MG/2 ML VIAL IV PRN (20:43)
[2020-12-12] MEDS: ASCORBIC ACID 500 MG TABLET PO SCH (21:00)
[2020-12-12] MEDS: dexAMETHasone 10 MG/ML VIAL IV SCH (21:00)
[2020-12-12 23:15] LABS: C-Reactive Protein 65.9 mg/L (<3.00)
[2020-12-13 04:04] LABS: Absolute Lymphocytes (CBC) 0.6 K/uL (0.7-4.9); Basophils % 0.8 % (0-1.3); Hematocrit 38.5 % (36.0-45.0); Lymphocytes % 18.5 % (15.3-44.8); MPV 8.4 fL (7.6-11.3); RBC Red Blood Cell Count 4.34 M/uL (3.86-4.86)
[2020-12-13 04:29] LABS: Albumin 2.7 g/dL (3.4-5.0); Bilirubin Total 0.4 mg/dL (0.2-1.0); C-Reactive Protein 69.3 mg/L (<3.00); Ferritin 1386.9 ng/mL (8-388); Potassium 3.4 mmol/L (3.5-5.1); Protein, Total 6.8 g/dL (6.4-8.2)
[2020-12-13] MEDS ORDERED: POTASSIUM CL SA 10 MEQ TAB PO ONE ×3 (06:30→16:00)
[2020-12-13 08:44] LABS: Urine Appearance CLEAR (Clear); Urine Bilirubin NEGATIVE (Negative); Urine Blood NEGATIVE (Negative); Urine Color YELLOW (Yellow); Urine Glucose NEGATIVE (Negative); Urine Protein TRACE (Negative); Urine Urobilinogen 0.2 mg/dL (0.2-1.0)
[2020-12-13] MEDS: VITAMIN D 1000 UNIT TAB PO SCH (08:50)
[2020-12-13] MEDS: ENOXAPARIN 40 MG/0.4 ML SQ SCH (08:50)
[2020-12-13] MEDS: ASCORBIC ACID 500 MG TABLET PO SCH ×4 (08:51→20:53)
[2020-12-13] MEDS: dexAMETHasone 10 MG/ML VIAL IV SCH ×2 (08:52→20:52)
[2020-12-13 09:01] LABS: Urine Microscopic Reflex ORDER UMIC
[2020-12-13 09:26] LABS: Urine Bacteria <20 /HPF (<20); Urine RBC <5 /HPF (NONE SEEN)
--- NOTE | 2020-12-13 12:45 | P.CNS ---
Date of Consult: 12/13/20 Reason for Consult: Coronavirus pneumonia Chief Complaint: COVID-19 pneumonia, unable to tolerate p.o. History of Present Illness: Patient is 50 years of age been sick for about a week and a half planing of vomiting diarrhea tested positive for coronavirus and she has some gastroenteritis was discharged home on Cipro and Flagyl been unable to keep anything down watery diarrhea is to be dehydrated 50-year-old female, PMH: Migraines, currently going through menopause. Patient is not vaccinated Allergies codeine Allergy (Unverified 07/22/16 13:35) Unknown Adhesives Allergy (Uncoded 07/22/16 13:35) Unknown Home Medications: Estradiol [Estrace] 1 mg PO DAILY 12/13/20 - Past Medical/Surgical History Diabetic: No -: Migraines -: Menopause - Social History Alcohol use: No CD- Drugs: No Caffeine use: No Place of Residence: Home Review of Systems General: Weakness Respiratory: Shortness of Breath Gastrointestinal: Nausea, Diarrhea Physical Examination Temp Pulse Resp BP Pulse Ox 99.1 F 82 16 96/55 L 90 L 12/13/20 12:00 12/13/20 12:00 12/13/20 12:00 12/13/20 12:00 12/13/20 12:00 General: Alert, Oriented x3, Acute distress HEENT: Atraumatic Neck: Supple Respiratory: Clear to auscultation bilaterally Laboratory Data (last 24 hrs) 12/12/20 10:46: WBC Cancelled, Hgb Cancelled, Hct Cancelled, Plt Count Cancelled 12/12/20 10:46: Sodium Cancelled, Potassium Cancelled, BUN Cancelled, Creatinine Cancelled, Glucose Cancelled, Total Bilirubin Cancelled, AST Cancelled, ALT Cancelled, Alkaline Phosphatase Cancelled, Lipase Cancelled - Problems (1) Coronavirus infection Current Visit: Yes Status: Acute Plan: Patient is 50 years of age admitted with coronavirus infection a chest x-ray is clear she is mildly hypoxic room air sat is only 90% chemistries reviewed agree with dexamethasone CT of the abdomen does show bilateral airspace disease consistent with coronavirus pneumonia
--- NOTE | 2020-12-13 16:49 | P.PN ---
Date of Service: 12/13/20 Subjective: Still with significant shortness of breath with minimal ambulation. Hypoxic down to 90% on room air. Still reporting some nausea this morning, but was able to tolerate a few sips overnight. Diarrhea seems to be slowing down a little bit as well Still gets tachycardic up to 130s with minimal ambulation ROS: 10 point ROS as noted above, otherwise negative Physical exam GEN: Alert, oriented, mild distress HEENT: Normal conjunctiva, sclera anicteric CV: Regular rate and rhythm, no edema Pulm: Mild labored respirations on room air ABD: Soft, nontender, nondistended MSK: No joint tenderness Integumentary: No rashes Neuro: Normal speech, normal affect Problem list COVID-19 pneumonia Nausea/vomiting/diarrhea Inability to tolerate p.o. Migraine Menopause SIRS 3/4, tachycardia, tachypnea, fever, no leukocytosis. Patient overall looks ill, not septic All secondary to her COVID-19 pneumonia/infection Continue with steroids, vitamin supplementation, oxygen as needed Pulmonology consult [facility] for DVT prophylaxis Patient reports feeling a little bit better today, still tachycardic and tachypneic with mild ambulation Slightly improved p.o. tolerance Did not feel patient is ready go home, she does not tolerating p.o. yet, no significant tachycardia Code: full Dispo: anticipate dc home in 24 hours Time Spent Managing Pts Care (In Minutes): 35
[2020-12-14 05:11] LABS: Hematocrit 42.1 % (36.0-45.0); MPV 8.5 fL (7.6-11.3); RBC Red Blood Cell Count 4.74 M/uL (3.86-4.86)
[2020-12-14 05:40] LABS: C-Reactive Protein 31.6 mg/L (<3.00); Ferritin 1572.2 ng/mL (8-388); Potassium 4.4 mmol/L (3.5-5.1)
[2020-12-14] MEDS: dexAMETHasone 10 MG/ML VIAL IV SCH (08:05)
[2020-12-14] MEDS: ENOXAPARIN 40 MG/0.4 ML SQ SCH (08:05)
[2020-12-14] MEDS: VITAMIN D 1000 UNIT TAB PO SCH (08:05)
[2020-12-14] MEDS: ASCORBIC ACID 500 MG TABLET PO SCH (08:05)
[2020-12-14 08:54] VITALS: O2SAT 91
[2020-12-14 09:21] VITALS: BP 104/69; TEMP 98.4
--- NOTE | 2020-12-14 18:09 | P.DS ---
Admission Date: 12/12/20 Discharge Date: 12/14/20 Disposition: ROUTINE DISCHARGE Discharge Condition: GOOD Reason for Admission: COVID-19 pneumonia, unable to tolerate p.o. Consultations: Pulmonology - Dr. Andujar Procedures: CT abdomen/pelvis (12/12): IMPRESSION: No acute intra-abdominal or pelvic finding. Basilar airspace disease which may reflect multifocal pneumonia, possibly Covid-19. CXR (12/12): FINDINGS: Portable technique limits examination quality. Poorly defined opacities are present in both lung bases, greater on the left as well as in the right upper lobe laterally. This likely represents a pulmonary infection/ pneumonia. COVID-19 is a possibility. The heart is normal in size. Problem list COVID-19 pneumonia Nausea/vomiting/diarrhea Inability to tolerate PO Migraine Menopause Brief History of Present Illness: 50-year-old female, PMH: Migraines, currently going through menopause. Presents to the ED after 1-1/2 weeks of ongoing nausea, vomiting, diarrhea, general malaise, and cough. Patient went to the critical access hospital, and her symptoms began 2-3 days later. Initial Covid testing was negative. She was seen at a urgent care and [facility] with negative imaging and "normal blood work". She was discharged home with ciprofloxacin and Flagyl 2-3 days ago to cover for possible enteritis/abdominal infection. She reports no change in her symptoms. She has been unable to keep any water or food down in the last few days. She continues with watery/loose diarrhea. She states her urine has been dark and she feels very dehydrated. In the ED, work-up notable for positive Covid test, negative CT abdomen/pelvis, however lower lung gillis on CT and on chest x-ray consistent with Covid pneumonia. Oxygen saturation 90-92% on room air, however when ambulating to the bathroom her heart rate significantly increased to the 130s, with tachypnea up to 40s. Tmax in ED: 101.9. She reports not receiving COVID vaccine. Hospital Course: Patient was treated for COVID pneumonia per protocol with steroids and vitamin supplementation. She has some improvement of her symptoms. On day of discharge she was tolerating p.o., without nausea/vomiting, diarrhea had improved. She did not require oxygen supplementation. Discharged home to continue treatment with steroids and vitamin supplementation Follow-up with pulmonology in 1 week. Vital Signs/Physical Exam: Physical exam GEN: Alert, oriented, mild distress HEENT: Normal conjunctiva, sclera anicteric CV: Regular rate and rhythm, no edema Pulm: non labored respirations on room air ABD: Soft, nontender, nondistended Neuro: Normal speech, normal affect Temp Pulse Resp BP Pulse Ox 98.4 F 84 16 104/69 90 L 12/14/20 08:00 12/14/20 08:00 12/14/20 08:00 12/14/20 08:00 12/14/20 08:00 Laboratory Data at Discharge: WBC 3.60 K/uL (4.3-10.9) L 12/14/20 04:39 Hgb 14.0 g/dL (12.0-15.0) 12/14/20 04:39 Hct 42.1 % (36.0-45.0) 12/14/20 04:39 Plt Count 159 K/uL (152-406) D 12/14/20 04:39 Sodium 145 mmol/L (136-145) 12/14/20 04:39 Potassium 4.4 mmol/L (3.5-5.1) 12/14/20 04:39 BUN 11 mg/dL (7-18) 12/14/20 04:39 Creatinine 0.86 mg/dL (0.55-1.3) 12/14/20 04:39 Glucose 152 mg/dL (74-106) H 12/14/20 04:39 Magnesium 2.0 mg/dL (1.8-2.4) 12/13/20 03:08 Total Bilirubin 0.4 mg/dL (0.2-1.0) 12/13/20 03:08 AST 66 U/L (15-37) H 12/13/20 03:08 ALT 53 U/L (12-78) 12/13/20 03:08 Alkaline Phosphatase 147 U/L (45-117) H 12/13/20 03:08 Lipase 98 U/L (73-393) 12/12/20 11:10 Home Medications: Estradiol [Estrace] 1 mg PO DAILY 12/13/20 Ascorbic Acid [Vitamin C*] 500 mg PO QID 30 Days #120 tablet 12/14/20 Aspirin [Aspirin EC] 81 mg PO DAILY 30 Days #30 tablet. 12/14/20 Cholecalciferol (Vitamin D3) [Vitamin D 1000 Iu Tab*] 4,000 unit PO DAILY 30 Days #120 tab 12/14/20 dexAMETHasone [Dexamethasone] 4 mg PO SEECOM 10 Days #15 tablet 12/14/20 New Medications: Aspirin [Aspirin EC] 81 mg PO DAILY 30 Days #30 tablet. dexAMETHasone [Dexamethasone] 4 mg PO SEECOM 10 Days #15 tablet Ascorbic Acid [Vitamin C*] 500 mg PO QID 30 Days #120 tablet Cholecalciferol (Vitamin D3) [Vitamin D 1000 Iu Tab*] 4,000 unit PO DAILY 30 Days #120 tab Physician Discharge Instructions: You were found to have COVID-19 pneumonia. You improved with steroids and vitamins. You did not require oxygen supplementation. You are discharged to continue with steroids and vitamins. Recommend taking aspirin 81mg daily for at least 1 month. Follow up with Dr. Andujar in ~1 week. Follow up with PCP in 3-5 days Diet: Regular Activity: Ad torsten Followup: Alejandro Andujar MD [ACTIVE - CAN ADMIT] - 1-2 Weeks (hand laster-call to schedule an appointment ) Shan Man MD [Primary Care Provider] - (PCP- follow up in 3-5 days ) Time spent managing pt's care (in minutes): 40
--- OUTSIDE RECORDS SUMMARY | 2020-12-28 15:57 | XMS REPORT | Continuity of Care Document ---
:1970 Author Organization [facility] t Address [address] [place] [address] Care Team Providers Name Role Phone Ganga Ward MD Primary Care Physician GANGA THRASHER Attending Clinician Unavailable PREETHI SANTANA Attending Clinician Unavailable Ganga Ward MD Attending Clinician GANGA WARD Attending Clinician Unavailable Doctor Unassigned, Name Attending Clinician Unavailable Tequila Thrasher MD Attending Clinician GANGA THRASHER Admitting Clinician Unavailable PREETHI SANTANA Admitting Clinician Unavailable JOY HAQUE Admitting Clinician Unavailable Payers Payer Name Policy Type Policy Number Effective Date Expiration Date S jazz BCBS BLUE [id number] 2012 2012 OPTIONS 00:00:00 00:00:00 CDC REVIEW [id number] 2019 00:00:00 Problems Condition Condition Condition Status Onset Resolution Last Treating Co mments Source Name Details Category Date Date Treatment Clinician Date Migraine Migraine Disease Active Unive rs 8- ity of 00:00: [place] [id number] Medical Branch Restless Restless Disease Active Unive rs leg leg 8- ity of syndrome syndrome 00:00: [address] No known No known Disease [facility] active active [place] problems problems of Medicin e Allergies, Adverse Reactions, Alerts Allergy Allergy Status Severity Reaction(s) Onset Inactive Treating Comm ents Source Name Type Date Date Clinician LORRIEX Allergy Active Low [facility] Adhes. Propensi Active Other - See Pulls Uni vers Band-Tap ty to comments 09-18 skin off ity of e-Benzal adverse 00:00: [place] konium reaction 00 Medical s Branch Codeine Propensi Active Anxiety Univer s ty to 09-18 ity of adverse 00:00: [place] reaction 00 Medical s Branch ADHES. DRUG Active Other-Cmnt Univer s BAND-TAP 09-18 ity of E-BENZAL 00:00: [place] KONIUM 00 Medical Branch CODEINE DRUG Active Anxiety Univers INGREDI 09-18 ity of 00:00: [place] 00 Medical Branch CODEINE Allergy Active Med Other [facility] 05-18 00:00: 00 Adhesive Propensi Active Itching Takes [facility] ty to 05-18 skin off College adverse 00:00: of reaction 00 Medicin s to e substanc e Codeine Propensi Active Anxiety "feel [facility] ty to 05-18 jumpy and College adverse 00:00: skin of reaction 00 crawling" Medic in s to e drug ADHESIVE Allergy Active Med Itching [facility] 05-18 00:00: 00 Social History Social Habit Start Date Stop Date Quantity Comments [facility] Not sure [facility] SARS-CoV-2 (event) [facility] Cigarettes smoked 2019-09-27 2019-09-27 [facility] of current (pack per 00:00:00 00:00:00 Medicin e day) - Reported Tobacco use and 2019-09-27 2019-09-27 [facility]:00 Medicine Alcohol intake 2019-09-27 2019-09-27 Current drinker [facility] of 00:00:00 00:00:00 of alcohol Medicine (finding) History [facility] 2019-09-14 2019-09-14 1 [facility] ge of Alcohol Std Drinks 00:00:00 00:00:00 Medici ne History [facility] 2019-09-14 2019-09-14 2 Day [facility] ge of Alcohol Binge 00:00:00 00:00:00 Medicine History [facility] 2019-09-14 2019-09-14 1 [facility] Colle ge of Alcohol Frequency 00:00:00 00:00:00 Medicin e History of tobacco 2017-01-14 Smoker [facility] of use 00:00:00 Medicine Smoking Status Start Date Stop Date Source Former smoker 2019-09-27 00:00:00 2019-09-27 00:00:00 [facility] of Medicine Medications Ordered Filled Start Stop Current Ordering Indication Dosage Frequency Signature Comments Components Source Medication Medication Date Date Medication? Clinician (SIG) Name Name acetaminoph Yes Take by Un adrian en/diphenhy 9-16 mouth. ity of dramine 09:35: [place] (TYLENOL PM 25 Medical ORAL) Branch acetaminoph Yes Take by Un adrian en/diphenhy 9-16 mouth. ity of dramine 09:35: [place] (TYLENOL PM 25 Medical ORAL) Branch propranolol 2020- No Take by U nivers HCl 9-16 09-16 mouth. ity of (PROPRANOLO 09:35: 00:00 [place] L ORAL) 08 :00 Medical Branch propranolol 2020- No Take by U nivers HCl 9-16 09-16 mouth. ity of (PROPRANOLO 09:35: 00:00 [place] L ORAL) 08 :00 Medical Branch meloxicam Yes [id number] 15mg Take 1 U nivers 15 mg 9-16 tablet by ity of tablet 00:00: mouth [place] 00 daily. Medical Branch meloxicam Yes [id number] 15mg Take 1 U nivers 15 mg 9-16 tablet by ity of tablet 00:00: mouth [place] 00 daily. Medical Branch topiramate Yes 100mg Take 100 [facility] (TOPAMAX) 8-04 mg by College 50 MG 16:07: mouth. of tablet 09 Medicin e Multiple Yes 1{tbl} Take 1 Tab B aylor Vitamin 8-04 by mouth. College (MULTI-JAQUAN 16:07: of MIN) TABS 09 Medicin e estradiol Yes TAKE ONE [facility] (ESTRACE) 1 5-04 (1) College MG tablet 00:00: TABLET(S) of 00 BY MOUTH Medicin ONCE A e DAY. propranolol Yes Take by Un adrian HCl 11-11 mouth. ity of (PROPRANOLO 15:51: [place] L ORAL) 05 Medical Branch acetaminoph Yes Take by Un adrian en/diphenhy 11-11 mouth. ity of dramine 15:51: [place] (TYLENOL PM Medical ORAL) Branch fluocinonid Yes [id number] Apply to Univers e 0.05 % 11-11 area(s) 2 ity of cream 00:00: (two) [place] 00 times Medical daily. Branch fluocinonid 2020- No [id number] Apply to Univers e 0.05 % 11-11 area(s) 2 ity o f cream 00:00: 00:00 (two) [place] 00 :00 times Medical daily. Branch fluocinonid 2020- No [id number] Apply to Univers e 0.05 % 11-11 area(s) 2 ity o f cream 00:00: 00:00 (two) [place] 00 :00 times Medical daily. Branch estradiol 1 Yes Univer s mg tablet 8-23 ity of 00:00: [place] 00 Medical Branch estradiol 1 Yes Univer s mg tablet 8-23 ity of 00:00: [place] 00 Medical Branch estradiol 1 Yes Univer s mg tablet 8-23 ity of 00:00: [place] 00 Medical Branch TROKENDI XR Yes Univer s 100 mg Cp24 - ity of 00:00: [place] 00 Medical Branch TROKENDI XR 2020- No Unive rs 100 mg Cp24 10-06 ity of 00:00: 00:00 [place] 00 :00 Medical Branch TROKENDI XR 2020- No Unive rs 100 mg Cp24 10-06 ity of 00:00: 00:00 [place] 00 :00 Medical Branch LYRICA 50 Yes Univers mg capsule -18 ity of 00:00: [place] 00 Medical Branch LYRICA 50 2020- No Univers mg capsule 10-03 ity of 00:00: 00:00 [place] 00 :00 Medical Branch LYRICA 50 2020- No Univers mg capsule 10-03 ity of 00:00: 00:00 [place] 00 :00 Medical Branch Immunizations Ordered Filled Immunization Date Status Comments Sourc e Immunization Name Name Influenza Virus 2018-12-24 Completed Universit y of Vaccine Quad .5 mL 00:00:00 [place] Medical IM 6+ MO Branch Influenza Virus 2018-12-24 Completed Universit y of Vaccine Quad .5 mL 00:00:00 [place] Medical IM 6+ MO Branch Influenza Virus 2018-12-24 Completed Universit y of Vaccine Quad .5 mL 00:00:00 [place] Medical IM 6+ MO Branch Vital Signs Vital Name Observation Time Observation Value Comments Source HEIGHT 2019-09-16 00:00:00 157.5 cm WEIGHT 2019-09-16 00:00:00 72.439 kg HEIGHT 2019-09-05 00:00:00 157.5 cm WEIGHT 2019-09-05 00:00:00 76.2 kg Systolic blood 2020-11-01 14:21:00 131 mm[Hg] Univer sity of [facility] Diastolic blood 2020-11-01 14:21:00 92 mm[Hg] Unive rsity of [facility] Heart rate 2020-11-01 14:21:00 74 /min [facility] Body temperature 2020-11-01 14:21:00 36.78 Christy [facility] Body height 2020-11-01 14:21:00 157.5 cm Universi ty [facility] Body weight 2020-11-01 14:21:00 77.111 kg Universi [facility] [place] BMI 2020-11-01 14:21:00 31.09 kg/m2 [facility] [place] Systolic blood 2019-09-14 20:39:00 117 mm[Hg] [facility] pressure Medicine Diastolic blood 2019-09-14 20:39:00 70 mm[Hg] [facility] pressure Medicine Heart rate 2019-09-14 20:39:00 81 /min [facility] Body temperature 2019-09-14 20:39:00 36.78 Christy [facility] HEIGHT 2019-09-05 00:00:00 157.5 cm WEIGHT 2019-09-05 00:00:00 76.2 kg Procedures Procedure Date / Time Performed Performing Clinician Sourc e POCT URINALYSIS 2020-11-01 00:00:00 [facility] [place] EXTERNAL PROVIDER 2019-09-15 05:01:00 Doctor Unassigned, No Univ [facility] RECORDS Name Medical Branch BASIC METABOLIC PANEL 2019-09-14 21:40:00 Cristian Thrasher [facility] URINE CULTURE 2019-09-14 21:40:00 Cristian Thrasher [facility] of Medicine CBC W/AUTO DIFF WITH 2019-09-14 21:40:00 Cristian Thrasher [facility] PLATELETS Medicine URINALYSIS W REFLEX 2019-09-14 21:40:00 Cristian Thrasher [facility] Meagan ollege of MICRO Medicine POCT URINALYSIS 2019-09-14 00:00:00 Cristian Thrasher [facility] of DIPSTICK Medicine Plan of Care Planned Activity Planned Date Details Comments Source Future Scheduled MAMMOGRAM ANNUAL [facility] Test [code = MAMMOGRAM of Medicin e ANNUAL] Future Scheduled TETANUS SHOT [facility] Pool ege Test (ADULT) [code = of Medicine TETANUS SHOT (ADULT)] Future Scheduled HIV SCREENING [facility] Col lege Test [code = HIV of Medicine SCREENING] Future Scheduled CERVICAL CANCER [facility] C ollege Test SCREENING 3 YEAR of Medicine FOLLOW UP [code = CERVICAL CANCER SCREENING 3 YEAR FOLLOW UP] Future Scheduled FLU VACCINE > 6 [facility] C ollege Test MONTHS [code = FLU of Medici ne VACCINE > 6 MONTHS] Future Scheduled ZOSTER VACCINE (1 [facility] Test of 2) [code = of Medicine ZOSTER VACCINE (1 of 2)] Future Scheduled XR ABDOMEN 1 VIEW 1 Occurrences [facility] Test (KUB) [code = starting 09/14/2019 of [facility] cine 285[address]] until 09/13/2020 Encounters Start End Encounter Admission Attending Care Care Encounter Source Date/Time Date/Time Type Type Clinicians Facility Department ID 2020-11-21 Outpatient PRICE [facility] Surgery [id number] SLE 01:47:51 CRISTIAN 2019-09-05 Inpatient ER MAX [facility] Urology [id number] SLE 15:26:00 MARI 2020-11-01 2020-11-01 Office CELINA Ward [id number] Univers 09:08:21 09:46:59 Visit [facility] [id number] it y of [place] [id number] Sha as Kenny?Blea [phone] Vt steven deleon [address] [place] [address] Medical Office Building 2020-11-01 2020-11-01 [facility] [id number]-20 Univers 09:00:00 09:00:00 LÓPEZ [id number] [facility] 2020-11-01 2020-11-01 Outpatient [facility] [id number] Univers 09:00:00 09:00:00 LÓPEZ [facility] 2019-10-05 2019-10-05 Outpatient SLE SLE [id number] SLE 00:00:00 00:00:00 2019-09-15 2019-09-15 Orders Doctor MICHELLE [id number] Univers 00:00:00 00:00:00 Only Unassigned, VEL [id number] ity of [place] [facility] [id number] Sha as [phone] [facility] 009 Branch 2019-09-15 2019-09-15 Orders Doctor MICHELLE [id number] 00:00:00 00:00:00 Only Unassigned, VEL [id number] [place] [facility] [id number] [facility] 2019-09-14 2019-09-14 Office Link, [facility] [id number] [facility] 14:46:07 15:53:18 Visit Cristian Mandel AMBULATOR [id number] College Y 0.2.7.2.686 of [id number] [facility] 300 e 2019-09-14 2019-09-14 Outpatient LINK, [facility] [id number] [facility] 00:00:00 00:00:00 CRISTIAN Results Test Description Test Time Test Comments Results Result Comments Source POCT URINALYSIS W SPECIFIC GRAVITY 2020-11-01 14:49:00 Test Item Value Reference Range Interpretation Comme nts POCT U SP GRAV (test code = 3255) 1.005 mg/dl 1.005-1.025 POCT PH U (test code = 3254) 6 mg/dl 5-8 POCT U LEUK EST (test code = 3263) trace Negative - Negative POCT U NIT (test code = 3262) neg Negative - Negative POCT U PROT (test code = 3259) trace Negative - Negative POCT U GLU (test code = 3256) normal Negative - Negative POCT U KETONE (test code = 3258) neg Negative - Negative POCT U UROBILI (test code = 3260) normal 0.2-1 POCT U BILI (test code = 3261) neg Negative - Negative POCT U BLD (test code = 3257) trace Negative - Negative POCT U COLOR (test code = 3266) pale POCT U APPEAR (test code = 3267) clear [facility] SPECIFIC [id number] 14:49:00 Test Item Value Reference Range Interpretation Comments POCT U SP GRAV (test code = 1.005 mg/dl 1.005-1.025 3255) POCT PH U (test code = 3254) 6 mg/dl 5-8 POCT U LEUK EST (test code = trace Negative - Negative 3263) POCT U NIT (test code = 3262) neg Negative - Negative POCT U PROT (test code = trace Negative - Negative 3259) POCT U GLU (test code = 3256) normal Negative - Negative POCT U KETONE (test code = neg Negative - Negative 3258) POCT U UROBILI (test code = normal 0.2-1 3260) POCT U BILI (test code = neg Negative - Negative 3261) POCT U BLD (test code = 3257) trace Negative - Negative POCT U COLOR (test code = pale 3266) POCT U APPEAR (test code = clear 3267) [facility]O, NON-SPECIFIC, UP TO 1 HOUR 2019-10-06 10:06:00Reason for exam:->Retrograde cystoscopyFluoroscopic unit utilized for a procedure performed in the OR. No interpretation was requested. Refer to the operative report for findings. Refer to PACS for patient radiation dose information.URINE [id number] 19:05:24 Test Item Value Reference Range Interpretation Comments URINE CULTURE (test SPECIMEN A CULTURE , URINE code = 630-4) NUMBER: [id number] SPECIMEN NUMBER : [id number] SPECI MEN COMMENT: URINE SOURCE: URINE REPORT STATUS: FINAL ISOLATE NUMBER 1: ORGANISM: 09/16/2019 50-100,000 CFU/ ML YEAST ADDITIONAL OBSERVATIONS: 09/16/2019 50-100,000 CFU/ ML LACTOBACILLUS SPECIES Unless Otherwis e Indicated, All Testing Perform ed At: [facility], [address] [place] [address] Accountant Certified Public: Joaquin Jack M.D. CLIA Number [id number] Cap Accreditation N o. [id number] Lab Interpretation Abnormal (test code = 68452-2) [facility] METABOLIC [id number] 11:06:11 Test Item Value Reference Range Interpretation Comments GLUCOSE (test code = See_Comment H [Autom ated message] 2345-7) The system [employer] generated this result transmitted ref erence range: 70 - 99 MG/DL. The reference r maggie was not used to interpret this result as normal/abnor mal. BLOOD UREA NITROGEN See_Comment [Automa candice message] (test code = 3091-6) The s tem which generated this result transmitted ref erence range: 6 - 20 M G/DL. The reference r maggie was not used to interpret this result as normal/abnor mal. CREATININE (test code = See_Comment [Au tomated message] 2160-0) The system [employer] generated this result transmitted ref erence range: 0.60 - 1 .30 MG/DL. The refe rence range was not u sed to interpret this result as normal/abnor mal. EGFR AA (test code = See_Comment [Autom ated message] 86498-8) The system [employer] generated this result transmitted ref erence range: >60 ML/MIN/1.73. Th e reference range was not used to int erpret this result as normal/abnormal . EGFR (test code = See_Comment L [Automate d message] 04496-8) The system [employer] generated this result transmitted ref erence range: >60 ML/MIN/1.73. Th e reference range was not used to int erpret this result as normal/abnormal . SODIUM (test code = See_Comment [Automa candice message] 2951-2) The system [employer] generated this result transmitted ref erence range: 133 - 14 6 MEQ/L. The refe rence range was not u sed to interpret this result as normal/abnor mal. POTASSIUM (test code = See_Comment [Aut omated message] 778-3) The system [employer] generated this result transmitted ref erence range: 3.5 - 5. 4 MEQ/L. The refe rence range was not u sed to interpret this result as normal/abnor mal. CHLORIDE (test code = See_Comment [Auto mated message] 0) The system [employer] generated this result transmitted ref erence range: 95 - 107 MEQ/L. The reference r maggie was not used to interpret this result as normal/abnor mal. CO2 (test code = See_Comment [Automated message] 1962-09) The system [employer] generated this result transmitted ref erence range: 19 - 31 MEQ/L. The reference r maggie was not used to interpret this result as normal/abnor mal. CALCIUM (test code = See_Comment Unless 21713-7) Otherwise Indic ated, All Testing Per formed At: [facility], [address] [place] [address] Laboratory Dire ctor: Joaquin jolly M.D. CLIA Num tristian [id number] Cap Accreditation N o. [id number] [Auto mated message] The sy stem which generated this result transmit candice reference range : 8.5 - 10.5 MG/DL. The reference range was not used to int erpret this result as normal/abnormal . Lab Interpretation Abnormal (test code = 89935-2) [facility] W/AUTO DIFF WITH [id number] 09:28:50 Test Item Value Reference Range Interpretation Comments WHITE BLOOD CELL COUNT See_Comment [Aut omated message] (test code = 99379-6) The sy stem which generated this result transmitted ref erence range: 3.5 - 10 .0 K/UL. The refer ence range was not u sed to interpret this result as normal/abnor mal. RED BLOOD CELL COUNT See_Comment [Autom ated message] (test code = 00637-1) The sy stem which generated this result transmitted ref erence range: 3.80 - 5 .20 M/UL. The refer ence range was not u sed to interpret this result as normal/abnor mal. HEMOGLOBIN (test code = See_Comment [Au tomated message] 718-7) The system [employer] generated this result transmitted ref erence range: 12.0 - 1 6.0 G/DL. The refer ence range was not u sed to interpret this result as normal/abnor mal. HEMATOCRIT (test code = 36.2 % 35-46 83092-5) MEAN CORPUSCULAR VOLUME 90.3 fL 80-99 (test code = 71673-7) MEAN CORPUSCULAR 30.4 PG 25-34 HEMOGLOBIN (test code = 64223-6) MEAN CORPUSCULAR See_Comment [Automated message] HEMOGLOBIN CONC (test The sy stem which code = 28182-8) generated th is result transmitted ref erence range: 31.0 - 3 6.0 G/DL. The refer ence range was not u sed to interpret this result as normal/abnor mal. RED CELL DISTRIBUTION 12.4 % 11.5-15 WIDTH (test code = 92268-9) NEUTROPHILS % (test 53.7 % 40-75 code = 66591-4) LYMPHOCYTES % (test 37.3 % 20-45 code = 85532-9) MONOCYTES % (test code 6.1 % 4-12 = 91228-6) EOSINOPHILS % (test 2.2 % 0-7 code = 62296-6) BASOPHILS % (test code 0.7 % 0-2 = 01289-4) PLATELET COUNT (test See_Comment H Unless code = 95173-0) Otherwise In dicated, All Testing Per formed At: [facility], [address] [place] [address] Laboratory Dire ctor: Joaquin jolly M.D. CLIA Num tristian [id number] Cap Accreditation [place] o. [id number] [Auto mated message] The sy stem which generated this result transmit candice reference range : 130 - 400 K/UL. The reference range was not used to int erpret this result as normal/abnormal . Lab Interpretation Abnormal (test code = 34711-2) [facility] [id number] 08:43:04 Test Item Value Reference Range Interpretation Comments COLOR UA (test code = YELLOW YELLOW-STRAW 5778-6) CLARITY UA (test code = CLEAR CLEAR 5767-9) SPECIFIC GRAVITY UA 1.005-1.035 L (test code = 5811-5) LEUKOCYTE ESTERASE UA 1+ NEGATIVE A (test code = 5799-2) NITRITE UA (test code = NEGATIVE NEGATIVE 5802-4) PH UA (test code = 5.0-9.0 5803-2) PROTEIN UA (test code = NEGATIVE NEGATIVE 32054-0) GLUCOSE UA (test code = NEGATIVE NEGATIVE 5792-7) KETONES UA (test code = NEGATIVE NEGATIVE 5797-6) UROBILINOGEN UA (test <2.0 See_Comment [Auto mated message] code = 26829-2) The system [employer] generated this result transmitted ref erence range: <=2.0 M G/DL. The reference r maggie was not used to interpret this result as normal/abnor mal. BILIRUBIN UA (test code NEGATIVE NEGATIVE = 5770-3) OCCULT BLOOD UA (test 1+ NEGATIVE A code = 78891-1) WBC UA (test code = 0-5 See_Comment [Automa candice message] 01125-6) The system [employer] generated this result transmitted ref erence range: 0 - 5 / HPF. The reference r maggie was not used to interpret this result as normal/abnor mal. RBC UA (test code = 0-2 See_Comment [Automa candice message] 30706-1) The system [employer] generated this result transmitted ref erence range: 0 - 5 / HPF. The reference r maggie was not used to interpret this result as normal/abnor mal. EPITHELIAL CELLS (test 0-5 See_Comment [Aut omated message] code = 98945-1) The system [employer] generated this result transmitted ref erence range: 0 - 10 /HPF. The reference r maggie was not used to interpret this result as normal/abnor mal. BACTERIA (test code = 3+ NEGATIVE A 83501-9) CRYSTALS (test code = (NOTE) NONE /HPF 5782-8) 1+ AMORPHOU S Unless Otherwis e Indicated, All Testing Performed At: [facility], [address] [place] [address] Laboratory Dire ctor: Joaquin jolly M.D. CLIA Num tristian [id number] Cap Accreditation N o. [id number] Lab Interpretation Abnormal (test code = 73405-0) [facility], 1 VIEW [id number] 19:28:00Reason for Exam:->NephrolithiasisFINAL REPORT TECHNIQUE: Abdomen single view. INDICATION: Nephrolithiasis. COMPARISON: CT 09/08/2019. FINDINGS:Surgical clips in the right upper quadrant related to prior cholecyste ctomy. There is a right-sided ureteral stent with the distal pigtail terminating in the right lower quadrant and expected location of the right distal ureter, unchanged. 7 mm calculus projecting over the lower pole of the right kidney remains unchanged. No calculus along the course of the stent. Lung bases are clear. IMPRESSION:7 mm nonobstructing calculus in lower pole of the right kidney, unchanged. Right-sided ureteral stent is unchanged with the distal pigtail terminating at the level of the right distal ureter.. Signed: Evaristo Ladd MDReplake regional health system Verified Date/Time: 09/14/2019 19:28:53 Reading Location: [address] Transitional Reading Room POCT URINALYSIS [id number] 00:00:00 Test Item Value Reference Range Interpretation Comments COLOR UA (test code = 5778-6) Yellow YELLOW/STRAW CLARITY UA (test code = 81976-3) Cloudy CLEAR GLUCOSE UA (test code = 5792-7) Negative NEGATIVE BILIRUBIN UA (test code = 5770-3) Negative NEGATIVE KETONES UA (test code = 54170-3) Negative NEGATIVE SPECIFIC GRAVITY UA (test code = 1.005-1.035 5811-5) BLOOD UA (test code = 5794-3) Small 1+ NEGATIVE PH UA (test code = 5803-2) 5-9 PROTEIN UA (test code = 5804-0) Trace NEGATIVE UROBILINOGEN UA (test code = 0.02 E.U/DL NORMAL MG/DL 5818-0) LEUKOCYTE ESTERASE UA (test code Negative NEGATIVE = 5799-2) NITRITE UA (test code = 5802-4) Negative NEGATIVE REDUCING SUBSTANCES URINE (test code = 06506-1) [facility] [id number] 19:00:00 Test Item Value Reference Range Interpretation Comments CULTURE (BEAKER) (test No growth in 5 days code = 1095) BLOOD [id number] 19:00:00 Test Item Value Reference Range Interpretation Comments CULTURE (BEAKER) (test No growth in 5 days code = 1095) CT, [id number] 09:31:00FINAL REPORT TECHNIQUE: CT of the abdomen and pelvis WITH intravenous contrast and WITH oral contrast. Dose modulation, iterative reconstruction, and/or weight-based adjustment of the mA/kV was utilized to reduce the radiation dose to as low as reasonably achievable. INDICATION:Abdominal pain, acute, nonlocalized. COMPARISON: CT from 06/28/2002. FINDINGS: LOWER THORAX: Pulmonary nodules in the right middle lobe measure 0.4 and 0.3 cm on axial image 1. No routine follow-up imaging is recommended. Bibasilar subsegmental atelectasis. Trace left pleural effusion. Elevation of the right hemidiaphragm. HEPATOBILIARY: No focal hepatic lesions. Prior cholecystectomy. Mild intrahepatic ductal dilation.SPLEEN: No splenomegaly.PANCREAS: No focal masses or ductal dilatation. ADRENALS:No adrenal nodules.KIDNEYS/URETERS: There is mild bilateral hydronephrosis. A right lower pole nonobstructing renal stone measures 0.7 cm. A right ureteral stent extends from an upper pole calyx to thedistal ureter. The right distal ureter is thickened for a length of approximately 4.3 cm. The right kidney is diffusely hypoenhancing with areas of phlegmon versus certainly abscess formation which measure 0.9 cm adjacent to the right upper pole on axial image 33, 0.9 cm in the right upper pole on axial image 36, and 2.1 cm in the right lower pole on axial image 44. There is asymmetric fat stranding around the right kidney. PELVIC ORGANS/BLADDER: Prior hysterectomy. PERITONEUM/RETROPERITONEUM: No free air or fluid.LYMPH NODES: No lymphadenopathy.VESSELS: Unremarkable. GI TRACT: No distention or wall thickening. BONES AND SOFT TISSUES: There is a least a mild pectus excavatum deformity. IMPRESSION: 1.A right ureteral stent extends from an upper pole calyx to the distal ureter but not into the bladder. Distal to the stent, there is a thickened and abnormal appearance to the ureter. This could be due to a stricture, reactive inflammation, or urothelial malignancy. 2.There is mild bilateral hydronephrosis. In addition, there are three areas of either abscess or phlegmon within and adjacent to theright kidney which measure up to 2.1 cm. 3.The left hydronephrosis is from an indeterminate cause. 4.The mild intrahepatic ductal dilation is nonspecific. Evaluation with liver function tests is recommended. If the patient has an obstructive pattern of liver function tests, consider MRCP of the abdomen with and without intravenous contrast for further evaluation. Signed: Kieran Lee MDReport Verified Date/Time: 09/09/2019 09:31:00 Reading Location: [address] Consult Reading Room VANCOMYCIN LEVEL, [id number] 22:58:00 Test Item Value Reference Range Interpretation Comments VANCOMYCIN TROUGH (BEAKER) (test 16.3 ug/mL 10.0-20.0 code = 522) Student ID - PIAYA LC. DIFFICILE GDH [id number] 21:05:00 Test Item Value Reference Range Interpretation Comments CDT TOXIN (test code Negative Negative = [id number]) CDT GDH ANTIGEN (test Negative Negative No ind ication of code = [id number]) Clostridi um difficile infection and n o colonization. Discontinue ent humera isolation and t herapy. Testing performed by [employer] Rapid Cassette Assay. For GDH, published sensitivity of the assay is 98.7% compared to cytotoxicity testing. For Toxin AB, published sensitivity is 87.8% and specificity 99.4% compared to cytotoxicity testing.Verification of kit performance was done by the [facility] prior to clinical use.PT/[id number] 07:24:00 Test Item Value Reference Range Interpretation Comments PROTIME (BEAKER) (test code = 14.2 seconds 11.9-14.2 759) INR (BEAKER) (test code = 370) 1.1 <=5.9 PARTIAL THROMBOPLASTIN TIME 36.7 seconds 22.5-36.0 H (BEAKER) (test code = 760) Effective 07/14/2018: PT Reference Range ChangeNew: 11.9-14.2 Previous: 11.7- 14.7RECOMMENDED COUMADIN/WARFARIN INR THERAPY RANGESSTANDARD DOSE: 2.0-3.0 Includes: PROPHYLAXIS for venous thrombosis, systemic embolization; TREATMENT for venous thrombosis and/or pulmonary embolus.HIGH RISK: Target INR is2.5-3.5 for patients wiht mechanical heart valves.PROTHROMBIN TIME/[id number] 07:23:00 Test Item Value Reference Range Interpretation Comments PROTIME (BEAKER) (test code = 14.2 seconds 11.9-14.2 759) INR (BEAKER) (test code = 370) 1.1 <=5.9 Effective 07/14/2018: PT Reference Range ChangeNew: 11.9-14.2 Previous: 11.7- 14.7RECOMMENDED COUMADIN/WARFARIN INR THERAPY RANGESSTANDARD DOSE: 2.0-3.0 Includes: PROPHYLAXIS for venous thrombosis, systemic embolization; TREATMENT for venous thrombosis and/or pulmonary embolus.HIGH RISK: Target INR is2.5-3.5 for patients wiht mechanical heart valves.[id number] 07:19:00 Test Item Value Reference Range Interpretation Comments PHOSPHORUS (BEAKER) (test code = 1.5 mg/dL 2.3-4.7 LL 604) Student ID - EDASIBASIC METABOLIC [id number] 07:17:00 Test Item Value Reference Range Interpretation Comments SODIUM (BEAKER) 138 meq/L 136-145 (test code = 381) POTASSIUM (BEAKER) 3.4 meq/L 3.5-5.1 L (test code = 379) CHLORIDE (BEAKER) 116 meq/L 98-107 H (test code = 382) CO2 (BEAKER) (test 19 meq/L 22-29 L code = 355) BLOOD UREA NITROGEN 9 mg/dL 7-21 (BEAKER) (test code = 354) CREATININE (BEAKER) 1.06 mg/dL 0.57-1.25 (test code = 358) GLUCOSE RANDOM 95 mg/dL 70-105 (BEAKER) (test code = 652) CALCIUM (BEAKER) 7.5 mg/dL 8.4-10.2 L (test code = 697) EGFR (BEAKER) (test 55 mL/min/1.73 ESTIMA CANDICE GFR IS code = 1092) sq m NOT ACCURATE CREATININE CLEARANCE IN PREDICTING GLOMERULAR FILTRATION RATE . ESTIMATED GFR I S NOT APPLICABLE FOR DIALYSIS PATIEN TS. Student ID - [id number] 07:12:00 Test Item Value Reference Range Interpretation Comments MAGNESIUM (BEAKER) (test code = 2.2 mg/dL 1.6-2.6 627) Student ID - EDASICBC W/PLT COUNT & AUTO [id number] 07:02:00 Test Item Value Reference Range Interpretation Comments WHITE BLOOD CELL COUNT (BEAKER) 11.2 K/ L 3.5-10.5 H (test code = 775) RED BLOOD CELL COUNT (BEAKER) 3.25 M/ L 3.93-5.22 L (test code = 761) HEMOGLOBIN (BEAKER) (test code = 9.9 GM/DL 11.2-15.7 L 410) HEMATOCRIT (BEAKER) (test code = 30.8 % 34.1-44.9 L 411) MEAN CORPUSCULAR VOLUME (BEAKER) 94.8 fL 79.4-94.8 (test code = 753) MEAN CORPUSCULAR HEMOGLOBIN 30.5 pg 25.6-32.2 (BEAKER) (test code = 751) MEAN CORPUSCULAR HEMOGLOBIN CONC 32.1 GM/DL 32.2-35.5 L (BEAKER) (test code = 752) RED CELL DISTRIBUTION WIDTH 13.9 % 11.7-14.4 (BEAKER) (test code = 412) PLATELET COUNT (BEAKER) (test code 68 K/CU MM 150-450 L = 756) MEAN PLATELET VOLUME (BEAKER) 10.8 fL 9.4-12.3 (test code = 754) NUCLEATED RED BLOOD CELLS (BEAKER) 0 /100 WBC 0-0 (test code = 413) NEUTROPHILS RELATIVE PERCENT 73 % (BEAKER) (test code = 429) LYMPHOCYTES RELATIVE PERCENT 13 % (BEAKER) (test code = 430) MONOCYTES RELATIVE PERCENT 10 % (BEAKER) (test code = 431) EOSINOPHILS RELATIVE PERCENT 2 % (BEAKER) (test code = 432) BASOPHILS RELATIVE PERCENT 0 % (BEAKER) (test code = 437) NEUTROPHILS ABSOLUTE COUNT 8.15 K/ L 1.56-6.13 H (BEAKER) (test code = 670) LYMPHOCYTES ABSOLUTE COUNT 1.44 K/ L 1.18-3.74 (BEAKER) (test code = 414) MONOCYTES ABSOLUTE COUNT (BEAKER) 1.08 K/ L 0.24-0.36 H (test code = 415) EOSINOPHILS ABSOLUTE COUNT 0.27 K/ L 0.04-0.36 (BEAKER) (test code = 416) BASOPHILS ABSOLUTE COUNT (BEAKER) 0.03 K/ L 0.01-0.08 (test code = 417) IMMATURE GRANULOCYTES-RELATIVE 2 % 0-1 H PERCENT (BEAKER) (test code = 2801) [id number] 15:52:00 Test Item Value Reference Range Interpretation Comments PHOSPHORUS (BEAKER) 1.4 mg/dL 2.3-4.7 LL Specimen slightly (test code = 604) hemolyzed Student ID - BSBASIC METABOLIC [id number] 15:44:00 Test Item Value Reference Range Interpretation Comments SODIUM (BEAKER) 139 meq/L 136-145 (test code = 381) POTASSIUM (BEAKER) 3.5 meq/L 3.5-5.1 Specimen slightly (test code = 379) hemolyzed CHLORIDE (BEAKER) 114 meq/L 98-107 H (test code = 382) CO2 (BEAKER) (test 17 meq/L 22-29 L code = 355) BLOOD UREA NITROGEN 9 mg/dL 7-21 (BEAKER) (test code = 354) CREATININE (BEAKER) 1.09 mg/dL 0.57-1.25 Specimen slightly (test code = 358) hemolyzed GLUCOSE RANDOM 75 mg/dL 70-105 (BEAKER) (test code = 652) CALCIUM (BEAKER) 7.3 mg/dL 8.4-10.2 L (test code = 697) EGFR (BEAKER) (test 53 mL/min/1.73 ESTIMA CANDICE GFR IS code = 1092) sq m NOT ACCURATE CREATININE CLEARANCE IN PREDICTING GLOMERULAR FILTRATION RATE . ESTIMATED GFR I S NOT APPLICABLE FOR DIALYSIS PATIEN TS. Student ID - [id number] 15:43:00 Test Item Value Reference Range Interpretation Comments MAGNESIUM (BEAKER) 1.6 mg/dL 1.6-2.6 Specimen slightly (test code = 627) hemolyzed Student ID - BSFL, FLUORO, NON-SPECIFIC, UP TO 1 [id number] 13:00:00Reason for exam:->RetrogradesFluoroscopic unit utilized for a procedure performed in the OR. No interpretation was requested. Refer to the operative report for findings. Refer to PACS for patient radiation dose information.PHOSPHORUS 2019-09-06 10:52:00 Test Item Value Reference Range Interpretation Comments PHOSPHORUS (BEAKER) (test code = 1.4 mg/dL 2.3-4.7 LL 604) Student ID - LMBASIC METABOLIC [id number] 10:50:00 Test Item Value Reference Range Interpretation Comments SODIUM (BEAKER) 137 meq/L 136-145 (test code = 381) POTASSIUM (BEAKER) 3.2 meq/L 3.5-5.1 L (test code = 379) CHLORIDE (BEAKER) 111 meq/L 98-107 H (test code = 382) CO2 (BEAKER) (test 19 meq/L 22-29 L code = 355) BLOOD UREA NITROGEN 9 mg/dL 7-21 (BEAKER) (test code = 354) CREATININE (BEAKER) 1.03 mg/dL 0.57-1.25 (test code = 358) GLUCOSE RANDOM 92 mg/dL 70-105 (BEAKER) (test code = 652) CALCIUM (BEAKER) 7.6 mg/dL 8.4-10.2 L (test code = 697) EGFR (BEAKER) (test 57 mL/min/1.73 ESTIMA CANDICE GFR IS code = 1092) sq m NOT ACCURATE CREATININE CLEARANCE IN PREDICTING GLOMERULAR FILTRATION RATE . ESTIMATED GFR I S NOT APPLICABLE FOR DIALYSIS PATIEN TS. Student ID - [id number] 10:42:00 Test Item Value Reference Range Interpretation Comments MAGNESIUM (BEAKER) (test code = 1.8 mg/dL 1.6-2.6 627) Student ID - [id number] 10:37:00 Test Item Value Reference Range Interpretation Comments PROTIME (BEAKER) (test code = 13.3 seconds 11.9-14.2 759) INR (BEAKER) (test code = 370) 1.0 <=5.9 PARTIAL THROMBOPLASTIN TIME 34.4 seconds 22.5-36.0 (BEAKER) (test code = 760) Effective 07/14/2018: PT Reference Range ChangeNew: 11.9-14.2 Previous: 11.7- 14.7RECOMMENDED COUMADIN/WARFARIN INR THERAPY RANGESSTANDARD DOSE: 2.0-3.0 Includes: PROPHYLAXIS for venous thrombosis, systemic embolization; TREATMENT for venous thrombosis and/or pulmonary embolus.HIGH RISK: Target INR is2.5-3.5 for patients wiht mechanical heart valves.CBC W/PLT COUNT & AUTO [id number] 10:23:00 Test Item Value Reference Range Interpretation Comments WHITE BLOOD CELL COUNT (BEAKER) 9.2 K/ L 3.5-10.5 (test code = 775) RED BLOOD CELL COUNT (BEAKER) 3.37 M/ L 3.93-5.22 L (test code = 761) HEMOGLOBIN (BEAKER) (test code = 10.1 GM/DL 11.2-15.7 L 410) HEMATOCRIT (BEAKER) (test code = 31.4 % 34.1-44.9 L 411) MEAN CORPUSCULAR VOLUME (BEAKER) 93.2 fL 79.4-94.8 (test code = 753) MEAN CORPUSCULAR HEMOGLOBIN 30.0 pg 25.6-32.2 (BEAKER) (test code = 751) MEAN CORPUSCULAR HEMOGLOBIN CONC 32.2 GM/DL 32.2-35.5 (BEAKER) (test code = 752) RED CELL DISTRIBUTION WIDTH 13.4 % 11.7-14.4 (BEAKER) (test code = 412) PLATELET COUNT (BEAKER) (test code 80 K/CU MM 150-450 L = 756) MEAN PLATELET VOLUME (BEAKER) 10.4 fL 9.4-12.3 (test code = 754) NUCLEATED RED BLOOD CELLS (BEAKER) 0 /100 WBC 0-0 (test code = 413) NEUTROPHILS RELATIVE PERCENT 75 % (BEAKER) (test code = 429) LYMPHOCYTES RELATIVE PERCENT 11 % (BEAKER) (test code = 430) MONOCYTES RELATIVE PERCENT 11 % (BEAKER) (test code = 431) EOSINOPHILS RELATIVE PERCENT 3 % (BEAKER) (test code = 432) BASOPHILS RELATIVE PERCENT 0 % (BEAKER) (test code = 437) NEUTROPHILS ABSOLUTE COUNT 6.86 K/ L 1.56-6.13 H (BEAKER) (test code = 670) LYMPHOCYTES ABSOLUTE COUNT 0.99 K/ L 1.18-3.74 L (BEAKER) (test code = 414) MONOCYTES ABSOLUTE COUNT (BEAKER) 1.00 K/ L 0.24-0.36 H (test code = 415) EOSINOPHILS ABSOLUTE COUNT 0.28 K/ L 0.04-0.36 (BEAKER) (test code = 416) BASOPHILS ABSOLUTE COUNT (BEAKER) 0.02 K/ L 0.01-0.08 (test code = 417) IMMATURE GRANULOCYTES-RELATIVE 1 % 0-1 PERCENT (BEAKER) (test code = 2801) SARS-COV2/RT-PCR ([facility])2019-09-05 19:29:00 Test Item Value Reference Range Interpretation Comments SARS-COV2/RT-PCR (test code Negative Not Detected, Negative, = [id number]) See external report for linked test SARS-COV-2 PERFORMING LAB [facility] (test code = [id number]) Negative results do not preclude SARS-CoV-2 infection and should not be used as the sole basis for patient management decisions. Negative results must be combined with clinical observations, patient history, and epidemiological information. A false negative result may occur if a specimen is improperly collected, transported or handled.The limit of detection for this assay is 250 copies/mL.This SARS CoV-2 test is a rapid, real-time RT-PCR test intended for the qualitative detection of nucleic acid from SARS-CoV-2 in a nasopharyngeal swab specimen collected from individuals suspected of COVID-19 by their healthcare provider.This test has not been Food and Drug Administration (FDA) cleared or approved and has been authorized by FDA under an Emergency Use Authorization (EUA). This EUA will be effective until the declaration that circumstances exist justifying the authorization of the emergency use of in vitro diagnostic tests for detection and/or diagnosis of COVID-19 is terminated under Section 564(b)(2) of the Act or the EUA is revoked under Section 564(g) of the Act.Fact Sheet for Healthcare Pro viders:https://www.[employer].com/Documents/Xpert%20Xpress%20SARS%20CoV-2/Fact%20Sh eets/302-3092%57URTP-RLF-5%20HEALTHCARE%20PROVIDERS%20FACT%20SHEET.pdfFact Sheet for Healthcare Patients:https://www.[employer].com/Documents/Xpert%20Xpress%20SARS%20CoV-2/Fact%20Sheets/302-3801%20SARS-COV -2%20PATIENT%20FACT%20SHEET.pdfPerforming Laboratory:[facility] [place] [address](CELLAVISION MANUAL DIFF)2019-09-05 18:48:00 Test Item Value Reference Range Interpretation Comments NEUTROPHILS - REL 77 % (CELLAVISION)(BEAKER) (test code = 2816) LYMPHOCYTES - REL 8 % (CELLAVISION)(BEAKER) (test code = 2817) MONOCYTES - REL 3 % (CELLAVISION)(BEAKER) (test code = 2818) EOSINOPHILS - REL 1 % (CELLAVISION)(BEAKER) (test code = 2819) BANDS - REL (CELLAVISION)(BEAKER) 10 % 0-10 (test code = 2826) NEUTROPHILS - ABS 7.93 K/ul 1.56-6.13 H (CELLAVISION)(BEAKER) (test code = 2830) LYMPHOCYTES - ABS 0.82 K/ul 1.18-3.74 L (CELLAVISION)(BEAKER) (test code = 2831) MONOCYTES - ABS 0.31 K/uL 0.24-0.36 (CELLAVISION)(BEAKER) (test code = 2832) EOSINOPHILS - ABS 0.10 K/uL 0.04-0.36 (CELLAVISION)(BEAKER) (test code = 2834) BANDS - ABS (CELLAVISION)(BEAKER) 1.03 K/uL 0.00-0.80 H (test code = 2840) TOTAL COUNTED (BEAKER) (test code = 100 1351) RBC MORPHOLOGY (BEAKER) (test code Normal = 762) GIANT PLATELETS (BEAKER) (test code Present = 313) VACUOLATED NEUTROPHILS (BEAKER) Present (test code = 483) PLASMACYTOID LYMPHS(BEAKER) (test Present code = 1677) ARTIFACT (CELLAVISION)(BEAKER) Present (test code = 3432) PLATELET CONCENTRATION Decreased (CELLAVISION)(BEAKER) (test code = 3438) Student ID - [id number] ID - Debbie comments: Slide comments:CBC W/PLT COUNT & AUTO [id number] 18:19:00 Test Item Value Reference Range Interpretation Comments WHITE BLOOD CELL COUNT (BEAKER) 10.3 K/ L 3.5-10.5 (test code = 775) RED BLOOD CELL COUNT (BEAKER) 4.06 M/ L 3.93-5.22 (test code = 761) HEMOGLOBIN (BEAKER) (test code = 12.2 GM/DL 11.2-15.7 410) HEMATOCRIT (BEAKER) (test code = 36.6 % 34.1-44.9 411) MEAN CORPUSCULAR VOLUME (BEAKER) 90.1 fL 79.4-94.8 (test code = 753) MEAN CORPUSCULAR HEMOGLOBIN 30.0 pg 25.6-32.2 (BEAKER) (test code = 751) MEAN CORPUSCULAR HEMOGLOBIN CONC 33.3 GM/DL 32.2-35.5 (BEAKER) (test code = 752) RED CELL DISTRIBUTION WIDTH 13.4 % 11.7-14.4 (BEAKER) (test code = 412) PLATELET COUNT (BEAKER) (test code 90 K/CU MM 150-450 L = 756) MEAN PLATELET VOLUME (BEAKER) 11.2 fL 9.4-12.3 (test code = 754) NUCLEATED RED BLOOD CELLS (BEAKER) 0 /100 WBC 0-0 (test code = 413) NEUTROPHILS RELATIVE PERCENT 86 % (BEAKER) (test code = 429) LYMPHOCYTES RELATIVE PERCENT 7 % (BEAKER) (test code = 430) MONOCYTES RELATIVE PERCENT 6 % (BEAKER) (test code = 431) EOSINOPHILS RELATIVE PERCENT 1 % (BEAKER) (test code = 432) BASOPHILS RELATIVE PERCENT 0 % (BEAKER) (test code = 437) NEUTROPHILS ABSOLUTE COUNT 8.86 K/ L 1.56-6.13 H (BEAKER) (test code = 670) LYMPHOCYTES ABSOLUTE COUNT 0.76 K/ L 1.18-3.74 L (BEAKER) (test code = 414) MONOCYTES ABSOLUTE COUNT (BEAKER) 0.58 K/ L 0.24-0.36 H (test code = 415) EOSINOPHILS ABSOLUTE COUNT 0.08 K/ L 0.04-0.36 (BEAKER) (test code = 416) BASOPHILS ABSOLUTE COUNT (BEAKER) 0.04 K/ L 0.01-0.08 (test code = 417) IMMATURE GRANULOCYTES-RELATIVE 1 % 0-1 PERCENT (BEAKER) (test code = 2801) [id number] 18:13:00 Test Item Value Reference Range Interpretation Comments PHOSPHORUS (BEAKER) (test code = 1.8 mg/dL 2.3-4.7 L 604) Student ID - [id number] 18:13:00 Test Item Value Reference Range Interpretation Comments MAGNESIUM (BEAKER) (test code = 1.8 mg/dL 1.6-2.6 627) Student ID - BSBASIC METABOLIC [id number] 18:13:00 Test Item Value Reference Range Interpretation Comments SODIUM (BEAKER) 136 meq/L 136-145 (test code = 381) POTASSIUM (BEAKER) 3.0 meq/L 3.5-5.1 L (test code = 379) CHLORIDE (BEAKER) 108 meq/L 98-107 H (test code = 382) CO2 (BEAKER) (test 19 meq/L 22-29 L code = 355) BLOOD UREA NITROGEN 16 mg/dL 7-21 (BEAKER) (test code = 354) CREATININE (BEAKER) 1.36 mg/dL 0.57-1.25 H (test code = 358) GLUCOSE RANDOM 112 mg/dL 70-105 H (BEAKER) (test code = 652) CALCIUM (BEAKER) 8.2 mg/dL 8.4-10.2 L (test code = 697) EGFR (BEAKER) (test 41 mL/min/1.73 ESTIMA CANDICE GFR IS code = 1092) sq m NOT ACCURATE CREATININE CLEARANCE IN PREDICTING GLOMERULAR FILTRATION RATE . ESTIMATED GFR I S NOT APPLICABLE FOR DIALYSIS PATIEN TS. Student ID - BSHEPATIC FUNCTION [id number] 18:13:00 Test Item Value Reference Range Interpretation Comments TOTAL PROTEIN (BEAKER) (test code = 6.5 gm/dL 6.0-8.3 770) ALBUMIN (BEAKER) (test code = 1145) 3.4 g/dL 3.5-5.0 L BILIRUBIN TOTAL (BEAKER) (test code 0.3 mg/dL 0.2-1.2 = 377) BILIRUBIN DIRECT (BEAKER) (test 0.2 mg/dL 0.1-0.5 code = 706) ALKALINE PHOSPHATASE (BEAKER) (test 83 U/L 40-150 code = 346) AST (SGOT) (BEAKER) (test code = 35 U/L 5-34 H 353) ALT (SGPT) (BEAKER) (test code = 30 U/L 6-55 347) Student ID - [id number] 18:13:00 Test Item Value Reference Range Interpretation Comments LIPASE (BEAKER) (test code = 749) 192 U/L 8-78 H Student ID - BSURINALYSIS W/ REFLEX URINE [id number] 18:13:00 Test Item Value Reference Range Interpretation Comments COLOR (BEAKER) (test code = 470) Yellow CLARITY (BEAKER) (test code = 469) Clear SPECIFIC GRAVITY UA (BEAKER) (test 1.015 1.001-1.035 code = 468) PH UA (BEAKER) (test code = 467) 6.0 5.0-8.0 PROTEIN UA (BEAKER) (test code = 70 mg/dL Negative A 464) GLUCOSE UA (BEAKER) (test code = Negative Negative 365) KETONES UA (BEAKER) (test code = 20 mg/dL Negative A 371) BILIRUBIN UA (BEAKER) (test code = Negative Negative 462) BLOOD UA (BEAKER) (test code = Moderate Negative A 461) NITRITE UA (BEAKER) (test code = Negative Negative 465) LEUKOCYTE ESTERASE UA (BEAKER) Small Negative A (test code = 466) UROBILINOGEN UA (BEAKER) (test 0.2 mg/dL 0.2-1.0 code = 463) RBC UA (BEAKER) (test code = 519) 5 /HPF WBC UA (BEAKER) (test code = 520) 8 /HPF BACTERIA (BEAKER) (test code = Occasional 517) SQUAMOUS EPITHELIAL (BEAKER) (test 1 /HPF code = 516) SOURCE(BEAKER) (test code = 2795) Student ID - [auto]Student ID - techLACTIC ACID, [id number] 18:06:00 Test Item Value Reference Range Interpretation Comments LACTATE BLOOD VENOUS (2) (BEAKER) 0.99 mmol/L 0.50-2.20 (test code = 2872) Student ID - [id number] 18:02:00 Test Item Value Reference Range Interpretation Comments PROTIME (BEAKER) (test code = 13.5 seconds 11.9-14.2 759) INR (BEAKER) (test code = 370) 1.1 <=5.9 PARTIAL THROMBOPLASTIN TIME 28.6 seconds 22.5-36.0 (BEAKER) (test code = 760) Effective 07/14/2018: PT Reference Range ChangeNew: 11.9-14.2 Previous: 11.7- 14.7RECOMMENDED COUMADIN/WARFARIN INR THERAPY RANGESSTANDARD DOSE: 2.0-3.0 Includes: PROPHYLAXIS for venous thrombosis, systemic embolization; TREATMENT for venous thrombosis and/or pulmonary embolus.HIGH RISK: Target INR is2.5-3.5 for patients wiht mechanical heart valves.PROTHROMBIN [id number] 18:01:00 Test Item Value Reference Range Interpretation Comments PROTIME (BEAKER) (test code = 13.5 seconds 11.9-14.2 759) INR (BEAKER) (test code = 370) 1.1 <=5.9 Effective 07/14/2018: PT Reference Range ChangeNew: 11.9-14.2 Previous: 11.7- 14.7RECOMMENDED COUMADIN/WARFARIN INR THERAPY RANGESSTANDARD DOSE: 2.0-3.0 Includes: PROPHYLAXIS for venous thrombosis, systemic embolization; TREATMENT for venous thrombosis and/or pulmonary embolus.HIGH RISK: Target INR is2.5-3.5 for patients wiht mechanical heart valves.
== END 2020-12-14 09:00 | disposition home or self-care (01) ==
LOC: ER 10:23 → ERHOLD 17:36 → 4TH 19:36
PROVIDERS: ADMIT Hospitalist; ATTEND Hospitalist
DX: U07.1 COVID-19 (principal); J12.82 Pneumonia due to coronavirus disease 2019; R09.02 Hypoxemia; R11.2 Nausea with vomiting, unspecified; R19.7 Diarrhea, unspecified; G43.909 Migraine, unspecified, not intractable, without status migrainosus; E86.0 Dehydration; Z78.0 Asymptomatic menopausal state; Z88.6 Allergy status to analgesic agent; Z91.048 Other nonmedicinal substance allergy status; Z87.891 Personal history of nicotine dependence; Z90.49 Acquired absence of other specified parts of digestive tract
CPT/HCPCS: 96361; 85025 ×2; 80048 ×2; 36415 ×2; 83735; 84132; 85379; 80076; 85027; 82728 ×3; 83690; 80053; 84145; 86140 ×3; 74177; 71045; 94760 ×4; 96374; 99285; U0003; Q9967; J1650 ×2; J1100 ×4; J7030 ×2; J2405; G0378 ×4; 81003; 81015